=== PATIENT | female | born 1945 | race African-American/Black ===

== ENCOUNTER 2017-07-22 19:43 | Inpatient (IN) | payer OTHER ==
--- NOTE | 2017-07-22 19:58 | PDOC ---
Rapid Medical Evaluation Medical Evaluation: 07/22/17 19:58 I have performed a brief in-person evaluation of this patient. The patient presents with a chief complaint of: Sent by PCP Negrita Desai for blood transfusion, Hg 7.1, fatigue, dizziness, palpitations, denies rectal bleeding/dark stools (on iron pills) hx HTN, asthma, HLD, GERD hx complete hysterectomy, breast cystectomy Pertinent physical exam findings: pale conjunctiva I have ordered the following: labs, T&S, ekg The patient will proceed to the ED for further evaluation. <Yasmin Evans - Last Filed: 07/22/17 20:04> Medical Evaluation: Allergies Allergy/AdvReac Type Severity Reaction Status Date / Time Penicillins Allergy Severe Difficulty Verified 07/22/17 20:02 Breathing Vital Signs Temp Pulse Resp BP Pulse Ox 99 F 92 H 19 162/72 99 07/22/17 20:02 07/23/17 00:26 07/23/17 00:26 07/23/17 00:26 07/23/17 00:26 <Amanda Peterson - Last Filed: 07/23/17 00:31> Time Seen by Provider: 07/22/17 19:57 Discharge Disposition <Yasmin Evans - Last Filed: 07/22/17 20:04> <Amanda Peterson - Last Filed: 07/23/17 00:31> - Diagnosis Symptomatic anemia - Referrals Referrals: Negrita Desai MD [Primary Care Provider] - - Patient Instructions - Post Discharge Activity
[2017-07-22 20:47] LABS: BASOPHIL 1.1 % (0-2.0); MEAN CELL VOLUME 60.4 fl (80-96); MEAN PLT VOLUME 9.1 fl (7.5-11.1); NEUTROPHILS 91.1 % (42.8-82.8); PLATELET COUNT 427 K/MM3 (134-434); RDW 19.7 % (11.6-15.6); WHITE BLOOD COUNT 9.5 K/mm3 (4.0-10.0)
[2017-07-22 20:49] LABS: MCH 18.2 pg (25.7-33.7)
[2017-07-22 21:12] LABS: ALBUMIN 3.7 g/dl (3.4-5.0); ALK PHOS 79 U/L (45-117); ANION GAP 10 (8-16); BILIRUBIN,TOTAL 0.4 mg/dL (0.2-1.0); CALCIUM 9.2 mg/dL (8.5-10.1); CO2 26 mmol/L (21-32); GLUCOSE,RANDOM 232 mg/dL (74-106); SGPT/ALT 14 U/L (12-78); TOT PROT 7.7 g/dl (6.4-8.2)
[2017-07-22 21:17] LABS: SGOT/AST 29 U/L (15-37)
[2017-07-22 22:39] LABS: INR 1.06 (0.82-1.09)
[2017-07-22 22:49] LABS: CPK 58 IU/L (26-192); TROPONIN I < 0.02 ng/ml (0.00-0.05)
--- NOTE | 2017-07-22 23:10 | PDOC ---
History of Present Illness - General History Source: Patient Exam Limitations: No Limitations <Fernanda Calvert - Last Filed: 07/23/17 00:27> <Amanda Peterson - Last Filed: 07/23/17 00:33> - General Chief Complaint: Blood Transfusion Stated Complaint: PCP SENT/BLOOD TRANSFUSION Time Seen by Provider: 07/22/17 19:57 - History of Present Illness Initial Comments: 07/22/17 23:11 The patient is a 71 year old female with significant past medical history of hypertension, hyperlipidemia, asthma, GERD, anemia on Fe supplements, sent to the ED by her doctor for anemia on bloodwork. On evaluation, the patient complains of palpitations, lightheadedness, and generalized weakness. No chest pain or shortness of breath. She denies any hemoptysis or blood per rectum. Patient noted to have a low-grade fever. No nausea, vomiting, or diarrhea. ( Fernanda Calvert) Past History <Fernanda Calvert - Last Filed: 07/23/17 00:27> - Past Medical History Asthma: Yes COPD: No HTN: Yes Hypercholesterolemia: Yes - Suicide/Smoking/Psychosocial Hx Smoking History: Never smoked Have you smoked in the past 12 months: No Information on smoking cessation initiated: No Hx Alcohol Use: No Drug/Substance Use Hx: No Substance Use Type: None <Amanda Peterson - Last Filed: 07/23/17 00:33> - Past Medical History Allergies/Adverse Reactions: Allergies Allergy/AdvReac Type Severity Reaction Status Date / Time Penicillins Allergy Severe Difficulty Verified 07/22/17 20:02 Breathing Home Medications: Ambulatory Orders Chlorthalidone 25 mg PO DAILY 07/22/17 Diltiazem HCl [Diltiazem 24Hr Cd] 180 mg PO DAILY 07/22/17 Enalapril Maleate [Vasotec] 20 mg PO DAILY 07/22/17 Metformin HCl 500 mg PO DAILY 07/22/17 Metoprolol Tartrate 50 mg PO BIDLASIX 07/22/17 Montelukast Na [Singulair -] 10 mg PO HS 07/22/17 Rivaroxaban [Xarelto -] 20 mg PO DAILY 07/22/17 Review of Systems - Review of Systems Able to Perform ROS?: Yes <Fernanda Calvert - Last Filed: 07/23/17 00:27> <Amanda Peterson - Last Filed: 07/23/17 00:33> - Review of Systems Comments:: 07/22/17 23:29 GENERAL/CONSTITUTIONAL: +Generalized weakness. +Low grade fever. HEAD, EYES, EARS, NOSE AND THROAT: No change in vision. No ear pain or discharge. No sore throat. CARDIOVASCULAR: +Palpitations. .+Lightheadedness. No chest pain or shortness of breath. RESPIRATORY: No cough, wheezing, or hemoptysis. GASTROINTESTINAL: No nausea, vomiting, diarrhea or constipation. GENITOURINARY: No dysuria, frequency, or change in urination. MUSCULOSKELETAL: No joint or muscle swelling or pain. No neck or back pain. SKIN: No rash NEUROLOGIC: No headache, loss of consciousness, or change in strength/sensation. ENDOCRINE: No increased thirst. No abnormal weight change. HEMATOLOGIC/LYMPHATIC: No anemia, easy bleeding, or history of blood clots. ALLERGIC/IMMUNOLOGIC: No hives or skin allergy. (Fernanda Calvert) *Physical Exam <Fernanda Calvert - Last Filed: 07/23/17 00:27> <Amanda Peterson - Last Filed: 07/23/17 00:33> - Vital Signs Last Vital Signs Temp Pulse Resp BP Pulse Ox 99 F 92 H 19 162/72 99 07/22/17 20:02 07/23/17 00:26 07/23/17 00:26 07/23/17 00:26 07/23/17 00:26 - Physical Exam Comments: 07/22/17 23:30 GENERAL: Awake, alert, and fully oriented, in no acute distress HEAD: No signs of trauma EYES: PERRLA, EOMI, sclera anicteric. +conjuctival pallor. ENT: Auricles normal inspection, nares patent. Moist mucosa NECK: Normal ROM, supple, no JVD, or masses LUNGS: Breath sounds equal, clear to auscultation bilaterally. No wheezes, and no crackles HEART: Regular rate and rhythm, normal S1 and S2, no murmurs, rubs or gallops ABDOMEN: Soft, nontender, normoactive bowel sounds. No guarding, no rebound. No masses EXTREMITIES: Normal range of motion, no edema. No clubbing or cyanosis. No cords, erythema, or tenderness NEUROLOGICAL: Alert and oriented x 3. Moves all extremities. Face is symmetric. SKIN: Warm, Dry, normal turgor, no rashes or lesions noted. (Fernanda Calvert) Heart Score/ECG Review - Electrocardiogram EKG: Normal - Age Age: >/= 65 - Risk Factors Risk Factors Heart Score: Yes Hx Diabetes Based on the list above the patient has:: 1-2 risk factors - Troponin Troponin: </= normal limit - ECG Intrepretation Rhythm: Regular Rhythm - ECG Impressions Non-specific ST Elevation: No Ischemic Changes: No Bradycardia: No Heart Block: 1st Degree Block(>20mils) <Amanda Peterson - Last Filed: 07/23/17 00:33> ED Treatment Course - LABORATORY CBC & Chemistry Diagram: 07/22/17 20:40 07/22/17 20:40 <Fernanda Calvert - Last Filed: 07/23/17 00:27> - LABORATORY CBC & Chemistry Diagram: 07/22/17 20:40 07/22/17 20:40 <Amanda Peterson - Last Filed: 07/23/17 00:33> - ADDITIONAL ORDERS Additional order review: Laboratory Results 07/22/17 07/22/17 07/22/17 22:14 21:30 21:30 PT with INR 12.00 H INR 1.06 Sodium Potassium Chloride Carbon Dioxide Anion Gap BUN Creatinine Creat Clearance w eGFR Random Glucose Calcium Total Bilirubin AST ALT Alkaline Phosphatase Creatine Kinase Troponin I B-Natriuretic Peptide 148.05 H Total Protein Albumin Stool Occult Blood Negative Blood Type Antibody Screen Crossmatch 07/22/17 07/22/17 07/22/17 21:30 20:40 20:40 PT with INR INR Sodium 137 Potassium 4.1 Chloride 101 Carbon Dioxide 26 Anion Gap 10 BUN 12 Creatinine 1.0 Creat Clearance w eGFR 54.81 Random Glucose 232 H Calcium 9.2 Total Bilirubin 0.4 AST 29 ALT 14 Alkaline Phosphatase 79 Creatine Kinase 58 Troponin I < 0.02 B-Natriuretic Peptide Total Protein 7.7 Albumin 3.7 Stool Occult Blood Blood Type B POSITIVE Antibody Screen Negative Crossmatch See Detail 07/22/17 20:40 RBC 4.41 MCV 60.4 L MCHC 30.0 L RDW 19.7 H MPV 9.1 Neutrophils % 91.1 H Lymphocytes % 7.1 L Monocytes % 0.7 L Eosinophils % 0.0 Basophils % 1.1 - RADIOLOGY Radiology Studies Ordered: Category Date Time Status CHEST X-RAY PORTABLE* [RAD] Stat Radiology 07/23/17 00:01 Taken Medical Decision Making <BalwinderFernanda oleary - Last Filed: 07/23/17 00:27> <Amanda Peterson - Last Filed: 07/23/17 00:33> - Medical Decision Making 07/23/17 00:23 Placed call to patient's PCP, Dr. Negrita Desai. Awaiting callback. 07/23/17 00:[address] Villafuerte, covering physician for Dr. Desai, who agreed to admission. (Fernanda Calvert) 07/23/17 00:28 71-year-old female sent in by Dr. Desai's office for admission for blood transfusion. Patient states she has complaint is fatigue, dizziness and increased shortness of breath with exertion Denies any fever, chills, nausea, vomiting, diarrhea Guaiac-negative. Hemoglobin 8.6, hematocrit sequel to 26, platelets already has adequate Patient's afebrile, hypertensive, in no acute distress. EKG is normal sinus rhythm at 85, left bundle branch block. There are no prior EKGs for comparison. Troponin is negative, cxr no effusions or infiltrates Case discussed with Dr. Villafuerte who is covering for Dr. Desai. Patient can be admitted to 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 (Fernanda Calvert)
[2017-07-22 23:30] LABS: ANISOCYTOSIS 1+; HYPOCHROMIA 3+; MICROCYTOSIS 2+; PLATELET COMMENTS RARE GIANT PLTS; PLATELET ESTIMATE ADEQUATE; POIKILOCYTOSIS OCC; POLYCHROMASIA 1+
[2017-07-23 09:01] LABS: BASOPHIL 0.3 % (0-2.0); MCHC 30.3 g/dl (32.0-36.0); MEAN CELL VOLUME 63.1 fl (80-96); MEAN PLT VOLUME 8.7 fl (7.5-11.1); PLATELET COUNT 407 K/MM3 (134-434); RDW 20.8 % (11.6-15.6)
[2017-07-23 09:14] LABS: MCH 19.1 pg (25.7-33.7)
[2017-07-23 09:35] LABS: ALBUMIN 3.6 g/dl (3.4-5.0); ANION GAP 8 (8-16); CALCIUM 8.8 mg/dL (8.5-10.1); CO2 26 mmol/L (21-32); CREATININE 0.9 mg/dL (0.55-1.02); GLUCOSE,RANDOM 234 mg/dL (74-106); SGOT/AST 11 U/L (15-37); SGPT/ALT 14 U/L (12-78)
[2017-07-23 09:37] LABS: ALK PHOS 73 U/L (45-117); BILIRUBIN,TOTAL 0.7 mg/dL (0.2-1.0); TOT PROT 7.1 g/dl (6.4-8.2)
--- NOTE | 2017-07-23 10:08 | CON.GI ---
Consult - History of Present Illness History of Present Illness: chart reviewed IN ED: The patient is a 71 year old female with significant past medical history of hypertension, hyperlipidemia, asthma, GERD, anemia on Fe supplements , sent to the ED by her doctor for anemia on bloodwork. On evaluation, the patient complains of palpitations, lightheadedness, and generalized weakness. No chest pain or shortness of breath. She denies any hemoptysis or blood per rectum. Patient noted to have a low-grade fever. No nausea, vomiting, or diarrhea. The patient reports no hisotry of black, tarry stools, hematochezia, hematemesis , coffee-ground vomiting, changed in stool caliper, weight loss. No dysphagia, odynophagia, GERD-like symptoms, no dyspepsia, jaundice. Not on chronic NSAIDs, antiplatelet, anticoagulation. No chronic ETOH. Hemoccult negative in ED. Never had EGD/colonsocopy. - Alcohol/Substance Use Hx Alcohol Use: No - Smoking History Smoking history: Never smoked Have you smoked in the past 12 months: No Home Medications - Allergies Allergies/Adverse Reactions: Allergies Allergy/AdvReac Type Severity Reaction Status Date / Time Penicillins Allergy Severe Difficulty Verified 07/22/17 20:02 Breathing - Home Medications Home Medications: Ambulatory Orders Chlorthalidone 25 mg PO DAILY 07/22/17 Diltiazem HCl [Diltiazem 24Hr Cd] 180 mg PO DAILY 07/22/17 Enalapril Maleate [Vasotec] 20 mg PO DAILY 07/22/17 Metformin HCl 500 mg PO DAILY 07/22/17 Metoprolol Tartrate 50 mg PO BIDLASIX 07/22/17 Montelukast Na [Singulair -] 10 mg PO HS 07/22/17 Rivaroxaban [Xarelto -] 20 mg PO DAILY 07/22/17 Family Disease History - Family Disease History Family History: Unremarkable Review of Systems Findings/Remarks: please refer to H&P, HPI - Review of Systems Constitutional: reports: No Symptoms Physical Exam-GI Vital Signs: Vital Signs Temperature 98.7 F 07/23/17 06:07 Pulse Rate 91 H 07/23/17 06:07 Respiratory Rate 13 07/23/17 06:07 Blood Pressure 161/81 07/23/17 06:07 O2 Sat by Pulse Oximetry (%) 99 07/23/17 07:10 Constitutional: Yes: Well Nourished, No Distress, Calm Eyes: Yes: Conjunctiva Clear HENT: Yes: Atraumatic Neck: Yes: Supple Cardiovascular: Yes: Regular Rate and Rhythm Respiratory: Yes: Regular Gastrointestinal Inspection: No: Ascites, Distention ...Auscultate: Yes: Normoactive Bowel Sounds ...Palpate: Yes: Soft. No: Firm/Rigid, Guarding, Mass, Tenderness, Tenderness, Rebound ...Rectal Exam: Yes: Deferred Neurological: Yes: Alert, Oriented Labs: CBC, BMP 07/23/17 08:50 07/23/17 08:50 INR, PTT INR 1.06 (0.82-1.09) 07/22/17 21:30 Laboratory Tests 07/22/17 07/22/17 07/22/17 20:40 20:40 20:40 WBC 9.5 RBC 4.41 Hgb 8.0 L Hct 26.7 L MCV 60.4 L MCH 18.2 L MCHC 30.0 L RDW 19.7 H Plt Count 427 MPV 9.1 Neutrophils % 91.1 H Lymphocytes % 7.1 L Monocytes % 0.7 L Eosinophils % 0.0 Basophils % 1.1 Hypochromia 3+ Platelet Estimate Adequate Platelet Comment Rare giant plts Polychromasia 1+ Poikilocytosis Occ Anisocytosis 1+ Microcytosis 2+ PT with INR INR Sodium 137 Potassium 4.1 Chloride 101 Carbon Dioxide 26 Anion Gap 10 BUN 12 Creatinine 1.0 Creat Clearance w eGFR 54.81 Random Glucose 232 H Calcium 9.2 Total Bilirubin 0.4 AST 29 ALT 14 Alkaline Phosphatase 79 Creatine Kinase Troponin I B-Natriuretic Peptide Total Protein 7.7 Albumin 3.7 Stool Occult Blood Blood Type B POSITIVE Antibody Screen Negative Crossmatch See Detail 07/22/17 07/22/17 07/22/17 21:30 21:30 21:30 WBC RBC Hgb Hct MCV MCH MCHC RDW Plt Count MPV Neutrophils % Lymphocytes % Monocytes % Eosinophils % Basophils % Hypochromia Platelet Estimate Platelet Comment Polychromasia Poikilocytosis Anisocytosis Microcytosis PT with INR 12.00 H INR 1.06 Sodium Potassium Chloride Carbon Dioxide Anion Gap BUN Creatinine Creat Clearance w eGFR Random Glucose Calcium Total Bilirubin AST ALT Alkaline Phosphatase Creatine Kinase 58 Troponin I < 0.02 B-Natriuretic Peptide 148.05 H Total Protein Albumin Stool Occult Blood Blood Type Antibody Screen Crossmatch 07/22/17 07/23/17 07/23/17 22:14 01:04 08:50 WBC 13.0 H D RBC 4.61 Hgb 8.8 L Hct 29.1 L MCV 63.1 L MCH 19.1 L MCHC 30.3 L RDW 20.8 H Plt Count 407 MPV 8.7 Neutrophils % 88.0 H Lymphocytes % 7.7 L Monocytes % 4.0 D Eosinophils % 0.0 Basophils % 0.3 Hypochromia Platelet Estimate Platelet Comment Polychromasia Poikilocytosis Anisocytosis Microcytosis PT with INR INR Sodium Potassium Chloride Carbon Dioxide Anion Gap BUN Creatinine Creat Clearance w eGFR Random Glucose Calcium Total Bilirubin AST ALT Alkaline Phosphatase Creatine Kinase Troponin I B-Natriuretic Peptide Total Protein Albumin Stool Occult Blood Negative Blood Type B POSITIVE Antibody Screen Crossmatch 07/23/17 08:50 WBC RBC Hgb Hct MCV MCH MCHC RDW Plt Count MPV Neutrophils % Lymphocytes % Monocytes % Eosinophils % Basophils % Hypochromia Platelet Estimate Platelet Comment Polychromasia Poikilocytosis Anisocytosis Microcytosis PT with INR INR Sodium 137 Potassium 3.6 Chloride 103 Carbon Dioxide 26 Anion Gap 8 BUN 15 D Creatinine 0.9 Creat Clearance w eGFR > 60 Random Glucose 234 H Calcium 8.8 Total Bilirubin 0.7 D AST 11 L D ALT 14 Alkaline Phosphatase 73 Creatine Kinase Troponin I B-Natriuretic Peptide Total Protein 7.1 Albumin 3.6 Stool Occult Blood Blood Type Antibody Screen Crossmatch Problem List - Problems (1) Microcytic hypochromic anemia Code(s): D50.9 - IRON DEFICIENCY ANEMIA, UNSPECIFIED Assessment/Plan A 71 yof with microcytic, hypochromic, symptomatic anemia. No obvious signs of GI bleed loss, or hemiodynamic instability at this time. As discussed with the patient, plan EGD and colonoscopy to evalaute for GI causes of anemia. Iron profile monitor for signs/symptoms of bleeding.
[2017-07-23] MEDS ORDERED: BISACODYL 5 MG TABLET.DR (FP) PO ONE (10:09)
[2017-07-23 10:34] VITALS: BMI 38.1
[2017-07-23] MEDS: SODIUM CHLORIDE 1,000 ML IV SCH (10:46)
[2017-07-23] MEDS: PANTOPRAZOLE SODIUM 40 MG VIAL IVPUSH SCH ×2 (11:10→22:18)
[2017-07-23] MEDS: ENALAPRIL MALEATE 10 MG TABLET (FP) PO SCH (11:10)
[2017-07-23 12:06] LABS: ANISOCYTOSIS 3+; HYPOCHROMIA 1+; MACROCYTOSIS 0; MICROCYTOSIS 3+; OVALOCYTE 1+; PLATELET ESTIMATE NORMAL; POIKILOCYTOSIS 2+; POLYCHROMASIA 3+; TARGET CELLS 1+
--- NOTE | 2017-07-23 14:03 | EKG ---
Test Reason : Blood Pressure : / mmHG Vent. Rate : 085 BPM Atrial Rate : 085 BPM P-R Int : 146 ms QRS Dur : 140 ms QT Int : 410 ms P-R-T Axes : 066 012 249 degrees QTc Int : 487 ms NORMAL SINUS RHYTHM POSSIBLE LEFT ATRIAL ENLARGEMENT LEFT BUNDLE BRANCH BLOCK ABNORMAL ECG NO PREVIOUS ECGS AVAILABLE Confirmed by KIARA MENDIETA MD ([id number]) on 07/23/2017 2:02:57 PM Referred By: Confirmed By:KIARA MENDIETA MD
--- NOTE | 2017-07-23 14:31 | CON.CARD ---
Consult Consult Specialty:: cardiology Referred by:: Christo Reason for Consultation:: Palpitations and fatigue, lightheadedness - History of Present Illness Chief Complaint: Palpitations, fatigue, lightheadedness History of Present Illness: The patient is a 71-year-old female, borderline diabetic, history of hypertension, hyperlipidemia, paroxysmal atrial fibrillation on Xarelto, who was referred to the emergency room because of severe anemia. The patient reported episodes of palpitations and lightheadedness. Denies chest pains and shortness of breath. She is currently comfortable and symptom free. 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's, CVA, Dementia, Migraine, Multiple Sclerosis, Peripheral Neuropathy, Parkinson's, Seizure, Syncope, TIA, Vertigo, Other Cardio/Vascular: Yes: AFIB Gastrointestinal: No: Ascites, Cancer, Constipation, Crohn's Disease, Diverticulitis, Diverticulosis, Esophageal Varices, Gastritis, GERD, GI Bleed, Hemorrhoids, Hiatal Hernia, Inflamatory Bowel Disease, Irritable Bowel Disease, Pancreatitis, Peptic Ulcer Disease, Ulcerative Colitis, Other Hepatobiliary: No: Cirrhosis, Cholelithiasis, Cholecystitis, Choledocholithiasis , Hepatitis A, Hepatitis B, Hepatitis C, Other Renal/: No: Renal Failure, Renal Inusuff, BPH, Cancer, Hematuria, Hemodialysis , Neurogenic Bladder, Renal Calculi, UTI, Other Infectious Disease: No: AIDS, C-Diff, Herpes Zoster, HIV, MRSA, STD's, Tuberculosis, VREF, Other Psych: No: Addictions, Anxiety, Bipolar, Depression, Panic, Psychosis, Schizophrenia, Other Musculoskeletal: No: Bursitis, Chronic low back pain, Hemiparesis, Hemiplegia, Osteoarthritis, Paraplegia, Other ENT: No: Allergic Rhinitis, Sinusitis, Other Endocrine: No: Ivan's Disease, [place]'s Disease, Diabetes Insipidus, Diabetes Mellitus, Hyperparathyroidism, Hyperthyroidism, Hypothyroidism, Osteopenia, SIADH, Other Dermatology: No: Basal Cell, Cellulitis, Eczema, Melanoma, Psoriasis, Squamous Cell, Other - Alcohol/Substance Use Hx Alcohol Use: No - Smoking History Smoking history: Never smoked Have you smoked in the past 12 months: No Home Medications - Allergies Allergies/Adverse Reactions: Allergies Allergy/AdvReac Type Severity Reaction Status Date / Time Penicillins Allergy Severe Difficulty Verified 07/22/17 20:02 Breathing - Home Medications Home Medications: Ambulatory Orders Chlorthalidone 25 mg PO DAILY 07/22/17 Diltiazem HCl [Diltiazem 24Hr Cd] 180 mg PO DAILY 07/22/17 Enalapril Maleate [Vasotec] 20 mg PO DAILY 07/22/17 Metformin HCl 500 mg PO DAILY 07/22/17 Metoprolol Tartrate 50 mg PO BIDLASIX 07/22/17 Montelukast Na [Singulair -] 10 mg PO HS 07/22/17 Rivaroxaban [Xarelto -] 20 mg PO DAILY 07/22/17 Review of Systems - Review of Systems Constitutional: reports: No Symptoms Eyes: reports: No Symptoms HENT: reports: No Symptoms Neck: reports: No Symptoms Cardiovascular: reports: Palpitations, Shortness of Breath Respiratory: reports: SOB on Exertion Gastrointestinal: reports: No Symptoms Genitourinary: reports: No Symptoms Breasts: reports: No Symptoms Reported Musculoskeletal: reports: No Symptoms Integumentary: reports: No Symptoms Neurological: reports: No Symptoms Endocrine: reports: No Symptoms Hematology/Lymphatic: reports: No Symptoms Psychiatric: reports: No Symptoms Vital Signs: Vital Signs Temperature 98.9 F 07/23/17 10:15 Pulse Rate 77 07/23/17 10:15 Respiratory Rate 18 07/23/17 10:15 Blood Pressure 160/72 07/23/17 10:15 O2 Sat by Pulse Oximetry (%) 100 07/23/17 10:15 Constitutional: Yes: Well Nourished, No Distress, Calm Eyes: Yes: WNL, Conjunctiva Clear, EOM Intact HENT: Yes: WNL, Atraumatic, Normocephalic Neck: Yes: WNL, Supple, Trachea Midline Respiratory: Yes: WNL, Regular, CTA Bilaterally Gastrointestinal: Yes: WNL, Normal Bowel Sounds, Soft Renal/: Yes: WNL Cardiovascular: Yes: WNL, Regular Rate and Rhythm JVD: No Carotid Bruit: No PMI: Non-Displaced Heart Sounds: Yes: S1, S2 Murmur: Yes: Systolic Murmur, Grade 2 Musculoskeletal: Yes: WNL Extremities: Yes: WNL Edema: No Peripheral Pulses WNL: Yes Integumentary: Yes: WNL Neurological: Yes: WNL - Other Data Labs, Other Data: CBC, BMP 07/23/17 08:50 07/23/17 08:50 INR, PTT INR 1.06 (0.82-1.09) 07/22/17 21:30 Troponin, BNP 07/22/17 07/22/17 21:30 21:30 Troponin I < 0.02 B-Natriuretic Peptide 148.05 H Troponin, BNP 07/22/17 07/22/17 21:30 21:30 Troponin I < 0.02 B-Natriuretic Peptide 148.05 H Assessment/Plan 79-year-old female, with borderline diabetes, hypertension, hyperlipidemia, paroxysmal atrial fibrillation on Xarelto, now presenting with symptomatic anemia. The patient reports exertional dyspnea with occasional palpitations. No chest pains. There is no evidence of ischemia nor acute coronary syndrome. No angina. No CHF. The patient is in sinus rhythm with a left bundle-branch block on the ECG. There is no need for further cardiac workup at this point. The patient is medically optimized for a GI workup. Anticoagulation should be resumed, as possible, as per GI. Please do not hesitate to call us PRN There is no need for cardiac monitoring at this point.
[2017-07-23] MEDS: METOPROLOL TARTRATE 50 MG TABLET (FP) PO SCH (14:36)
--- NOTE | 2017-07-23 15:53 | HP ---
Admitting History and Physical - Primary Care Physician PCP: Negrita Desai - Admission Chief Complaint: GI BLEED/ANEMIA/CHEST PAIN History of Present Illness: The patient is a 71 year old female with significant past medical history of hypertension, hyperlipidemia, asthma, GERD, anemia on Fe supplements, sent to the ED by her doctor for anemia on bloodwork. On evaluation, the patient complains of palpitations, lightheadedness, and generalized weakness. No chest pain or shortness of breath. She denies any hemoptysis or blood per rectum. Patient noted to have a low-grade fever. No nausea, vomiting, or diarrhea. The patient reports no hisotry of black, tarry stools, hematochezia, hematemesis , coffee-ground vomiting, changed in stool caliper, weight loss. No dysphagia, odynophagia, GERD-like symptoms, no dyspepsia, jaundice. Not on chronic NSAIDs, antiplatelet, anticoagulation. No chronic ETOH. Hemoccult negative in ED. Never had EGD/colonsocopy. 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: Alzheimer's, CVA, Dementia, Migraine, Multiple Sclerosis, Peripheral Neuropathy, Parkinson's, Seizure, Syncope, TIA, Vertigo, Other Cardiovascular: Yes: AFIB Gastrointestinal: No: Ascites, Cancer, Constipation, Crohn's Disease, Diverticulitis, Diverticulosis, Esophageal Varices, Gastritis, GERD, GI Bleed, Hemorrhoids, Hiatal Hernia, Inflamatory Bowel Disease, Irritable Bowel Disease, Pancreatitis, Peptic Ulcer Disease, Ulcerative Colitis, Other Hepatobiliary: No: Cirrhosis, Cholelithiasis, Cholecystitis, Choledocholithiasis , Hepatitis A, Hepatitis B, Hepatitis C, Other Renal/: No: Renal Failure, Renal Inusuff, BPH, Cancer, Hematuria, Hemodialysis , Neurogenic Bladder, Renal Calculi, UTI, Other Infectious Disease: No: AIDS, C-Diff, Herpes Zoster, HIV, MRSA, STD's, Tuberculosis, VREF, Other Psych: No: Addictions, Anxiety, Bipolar, Depression, Panic, Psychosis, Schizophrenia, Other Musculoskeletal: No: Bursitis, Chronic low back pain, Hemiparesis, Hemiplegia, Osteoarthritis, Paraplegia, Other ENT: No: Allergic Rhinitis, Sinusitis, Other Endocrine: No: [place]'s Disease, [place]'s Disease, Diabetes Insipidus, Diabetes Mellitus, Hyperparathyroidism, Hyperthyroidism, Hypothyroidism, Osteopenia, SIADH, Other Dermatology: No: Basal Cell, Cellulitis, Eczema, Melanoma, Psoriasis, Squamous Cell, Other - Smoking History Smoking history: Never smoked Have you smoked in the past 12 months: No - Alcohol/Substance Use Hx Alcohol Use: No Home Medications - Allergies Allergies/Adverse Reactions: Allergies Allergy/AdvReac Type Severity Reaction Status Date / Time Penicillins Allergy Severe Difficulty Verified 07/22/17 20:02 Breathing - Home Medications Home Medications: Ambulatory Orders Chlorthalidone 25 mg PO DAILY 07/22/17 Diltiazem HCl [Diltiazem 24Hr Cd] 180 mg PO DAILY 07/22/17 Enalapril Maleate [Vasotec] 20 mg PO DAILY 07/22/17 Metformin HCl 500 mg PO DAILY 07/22/17 Metoprolol Tartrate 50 mg PO BIDLASIX 07/22/17 Montelukast Na [Singulair -] 10 mg PO HS 07/22/17 Rivaroxaban [Xarelto -] 20 mg PO DAILY 07/22/17 Review of Systems - Review of Systems Constitutional: reports: Lethargy Eyes: reports: No Symptoms HENT: reports: No Symptoms Neck: reports: No Symptoms Cardiovascular: reports: Chest Pain Respiratory: reports: SOB Gastrointestinal: reports: No Symptoms Genitourinary: reports: No Symptoms Musculoskeletal: reports: No Symptoms Integumentary: reports: No Symptoms Neurological: reports: No Symptoms Endocrine: reports: No Symptoms Hematology/Lymphatic: reports: No Symptoms Psychiatric: reports: No Symptoms Physical Examination Vital Signs: Vital Signs Temperature 98.8 F 07/23/17 14:15 Pulse Rate 76 07/23/17 14:15 Respiratory Rate 18 07/23/17 14:15 Blood Pressure 143/71 07/23/17 14:15 O2 Sat by Pulse Oximetry (%) 98 07/23/17 14:15 Constitutional: Yes: Mild Distress Eyes: Yes: WNL HENT: Yes: WNL Neck: Yes: WNL Cardiovascular: Yes: WNL Respiratory: Yes: WNL Gastrointestinal: Yes: WNL Renal/: Yes: WNL Musculoskeletal: Yes: WNL Extremities: Yes: WNL Edema: No Peripheral Pulses WNL: Yes Integumentary: Yes: WNL Wound/Incision: Yes: Clean/Dry Neurological: Yes: WNL ...Motor Strength: WNL Psychiatric: Yes: WNL Labs: CBC, BMP 07/23/17 08:50 07/23/17 08:50 Problem List - Problems (1) GI bleed Code(s): K92.2 - GASTROINTESTINAL HEMORRHAGE, UNSPECIFIED Qualifiers: Gastritis type: unspecified gastritis (2) Diabetes Code(s): E11.9 - TYPE 2 DIABETES MELLITUS WITHOUT COMPLICATIONS Qualifiers: Diabetes mellitus type: type 2 Diabetes mellitus complication status: with unspecified complications Diabetes mellitus fpc insulin use: without terminal computer operator use Qualified Code(s): E11.8 - Type 2 diabetes mellitus with unspecified complications (3) Hypertension Code(s): I10 - ESSENTIAL (PRIMARY) HYPERTENSION Qualifiers: Hypertension type: essential hypertension Qualified Code(s): I10 - Essential (primary) hypertension (4) Microcytic hypochromic anemia Code(s): D50.9 - IRON DEFICIENCY ANEMIA, UNSPECIFIED (5) Symptomatic anemia Code(s): D64.9 - ANEMIA, UNSPECIFIED Assessment/Plan NPO GI WORKUP IN PROGRESS PPI IV BID CARDIOLOGY EVAL CHECK LABS TRANSFUSE PRBC NEEDED
--- NOTE | 2017-07-23 16:43 | CONSULT ---
Consult Consult Specialty:: Hematolgy - History of Present Illness History of Present Illness: The patient is a 71 year old female with significant past medical history of hypertension, hyperlipidemia, asthma, GERD, anemia on Fe supplements, sent to the ED by PMD for anemia on bloodwork. Hemoccult negative in ED. Never had EGD/ colonsocopy. 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, CVA, Dementia, Migraine, Multiple Sclerosis, Peripheral Neuropathy, Parkinson's, Seizure, Syncope, TIA, Vertigo, Other Cardio/Vascular: Yes: AFIB Gastrointestinal: No: Ascites, Cancer, Constipation, Crohn's Disease, Diverticulitis, Diverticulosis, Esophageal Varices, Gastritis, GERD, GI Bleed, Hemorrhoids, Hiatal Hernia, Inflamatory Bowel Disease, Irritable Bowel Disease, Pancreatitis, Peptic Ulcer Disease, Ulcerative Colitis, Other Hepatobiliary: No: Cirrhosis, Cholelithiasis, Cholecystitis, Choledocholithiasis , Hepatitis A, Hepatitis B, Hepatitis C, Other Renal/: No: Renal Failure, Renal Inusuff, BPH, Cancer, Hematuria, Hemodialysis , Neurogenic Bladder, Renal Calculi, UTI, Other Infectious Disease: No: AIDS, C-Diff, Herpes Zoster, HIV, MRSA, STD's, Tuberculosis, VREF, Other Psych: No: Addictions, Anxiety, Bipolar, Depression, Panic, Psychosis, Schizophrenia, Other Musculoskeletal: No: Bursitis, Chronic low back pain, Hemiparesis, Hemiplegia, Osteoarthritis, Paraplegia, Other ENT: No: Allergic Rhinitis, Sinusitis, Other Endocrine: No: [place]'s Disease, [place]'s Disease, Diabetes Insipidus, Diabetes Mellitus, Hyperparathyroidism, Hyperthyroidism, Hypothyroidism, Osteopenia, SIADH, Other Dermatology: No: Basal Cell, Cellulitis, Eczema, Melanoma, Psoriasis, Squamous Cell, Other - Alcohol/Substance Use Hx Alcohol Use: No - Smoking History Smoking history: Never smoked Have you smoked in the past 12 months: No Home Medications - Allergies Allergies/Adverse Reactions: Allergies Allergy/AdvReac Type Severity Reaction Status Date / Time Penicillins Allergy Severe Difficulty Verified 07/22/17 20:02 Breathing - Home Medications Home Medications: Ambulatory Orders Chlorthalidone 25 mg PO DAILY 07/22/17 Diltiazem HCl [Diltiazem 24Hr Cd] 180 mg PO DAILY 07/22/17 Enalapril Maleate [Vasotec] 20 mg PO DAILY 07/22/17 Metformin HCl 500 mg PO DAILY 07/22/17 Metoprolol Tartrate 50 mg PO BIDLASIX 07/22/17 Montelukast Na [Singulair -] 10 mg PO HS 07/22/17 Rivaroxaban [Xarelto -] 20 mg PO DAILY 07/22/17 Review of Systems - Review of Systems Constitutional: denies: Diaphoresis, Fever, Lethargy, Loss of Appetite, Unintentional Wgt. Loss, Weakness HENT: denies: Difficult Swallowing, Ear Discharge Neck: denies: Decreased ROM, Lumps Cardiovascular: reports: Shortness of Breath. denies: Chest Pain Respiratory: reports: Exercise Intolerance, SOB on Exertion. denies: Cough Neurological: reports: No Symptoms Hematology/Lymphatic: reports: No Symptoms Physical Exam Vital Signs: Vital Signs Temperature 98.7 F 07/23/17 14:30 Pulse Rate 78 07/23/17 14:30 Respiratory Rate 18 07/23/17 14:30 Blood Pressure 144/72 07/23/17 14:30 O2 Sat by Pulse Oximetry (%) 99 07/23/17 14:30 Constitutional: Yes: Well Nourished, No Distress, Calm Eyes: Yes: Conjunctiva Clear HENT: Yes: Atraumatic, Normocephalic Neck: Yes: Supple Cardiovascular: Yes: Regular Rate and Rhythm Respiratory: Yes: Regular, CTA Bilaterally Gastrointestinal: Yes: Normal Bowel Sounds, Soft Musculoskeletal: Yes: WNL Extremities: Yes: WNL Edema: No Labs: CBC, BMP 07/23/17 08:50 07/23/17 08:50 Problem List - Problems (1) Diabetes Code(s): E11.9 - TYPE 2 DIABETES MELLITUS WITHOUT COMPLICATIONS Qualifiers: Diabetes mellitus type: type 2 Diabetes mellitus complication status: with unspecified complications Diabetes mellitus vermin exterminator insulin use: without mcfp use Qualified Code(s): E11.8 - Type 2 diabetes mellitus with unspecified complications (2) Microcytic hypochromic anemia Code(s): D50.9 - IRON DEFICIENCY ANEMIA, UNSPECIFIED (3) Symptomatic anemia Code(s): D64.9 - ANEMIA, UNSPECIFIED (4) Paroxysmal A-fib Code(s): I48.0 - PAROXYSMAL ATRIAL FIBRILLATION Assessment/Plan is a 71 year old pt with anemia. on Xarelto for pAfib Hypochromic microcytic anemia , reviewing the RDW/MCV, seems like chronic GI consulted noted will follow op on EGD/Colonoscopy results for iron studies r/o any underlying hemoglobinopathy will follow. depending on iron studies may benefit from IV iron d/w pt.
[2017-07-23 17:44] LABS: LDH 255 U/L (84-246)
[2017-07-23 17:45] LABS: FERRITIN 7.708 ng/ml (6.9-282.5)
[2017-07-23] MEDS ORDERED: PEG 3350/NA SULF BICARB CL/KCL 4000 ML SOLN.RECON PO ONE (18:00)
[2017-07-23] MEDS: MONTELUKAST NA 10 MG TABLET PO SCH (22:18)
[2017-07-24 01:27] LABS: MCHC 30.8 g/dl (32.0-36.0); MEAN PLT VOLUME 9.2 fl (7.5-11.1); NEUTROPHILS 86.6 % (42.8-82.8); PLATELET COUNT 345 K/MM3 (134-434); RDW 23.6 % (11.6-15.6); WHITE BLOOD COUNT 14.9 K/mm3 (4.0-10.0)
[2017-07-24 01:31] LABS: MCH 19.7 pg (25.7-33.7)
[2017-07-24 02:36] LABS: FERRITIN 10.91 ng/ml (6.9-282.5)
[2017-07-24] MEDS: METOPROLOL TARTRATE 50 MG TABLET (FP) PO SCH ×2 (06:39→14:18)
[2017-07-24] MEDS: SODIUM CHLORIDE 1,000 ML IV SCH ×2 (08:00→21:24)
[2017-07-24] MEDS: PANTOPRAZOLE SODIUM 40 MG VIAL IVPUSH SCH (10:00)
[2017-07-24] MEDS ORDERED: PROPOFOL 20 ML ONE ×4 (10:27)
--- NOTE | 2017-07-24 11:19 | PROC ---
Endoscopy Procedure Endoscopy procedure completed. Please see scanned procedure report. Normal colonoscopy, moderate internal hemorrhoids. 2 x 3 cm white-based, without stigmata of recent, or impending bleeding ulcer was found in the antrum. Multiple biopsies taken. Mild esohagtitis was found in distal esophagus. PPI po bid Carafate 1 mg po qid x 1 week No NSAIDs Regular diet Follow pathology report in office in 1-2 weeks Repeat EGD in 3 months for ulcer surveillance Screening colonoscopy in 5 years (10-15% obscured) Strongly consider Pulmonary/Sleep medicine evacuation for BENJAMIN
--- NOTE | 2017-07-24 11:23 | PN ---
Progress Note, Physician Chief Complaint: s/p endoscopy awake but drowsy - Current Medication List Current Medications: Active Medications Diltiazem HCl (Cardizem Cd -) 180 mg PO DAILY [facility] Last Admin: 07/23/17 11:10 Dose: 180 mg Enalapril Maleate (Vasotec -) 20 mg PO DAILY [facility] Last Admin: 07/23/17 11:10 Dose: 20 mg Sodium Chloride (Normal Saline -) 1,000 mls @ 83 mls/hr IV ASDIR [facility] Last Admin: 07/23/17 10:46 Dose: 83 mls/hr Metoprolol Tartrate (Lopressor -) 50 mg PO BID@0600,1400 [facility] Last Admin: 07/24/17 06:39 Dose: 50 mg Montelukast Sodium (Singulair -) 10 mg PO HS [facility] Last Admin: 07/23/17 22:18 Dose: 10 mg Pantoprazole Sodium (Protonix -) 40 mg PO BID [facility] Sucralfate (Carafate Oral Suspension -) 1 gm PO QID [facility] - Objective Vital Signs: Vital Signs Temperature 98.3 F 07/24/17 06:00 Pulse Rate 60 07/24/17 09:00 Respiratory Rate 18 07/24/17 09:00 Blood Pressure 154/66 07/24/17 09:00 O2 Sat by Pulse Oximetry (%) 98 07/23/17 22:39 Constitutional: Yes: No Distress Eyes: Yes: WNL HENT: Yes: WNL Neck: Yes: WNL Cardiovascular: Yes: WNL Respiratory: Yes: WNL Gastrointestinal: Yes: WNL Genitourinary: Yes: WNL Musculoskeletal: Yes: WNL Extremities: Yes: WNL Edema: No Peripheral Pulses WNL: Yes Integumentary: Yes: WNL Wound/Incision: Yes: Clean/Dry Neurological: Yes: WNL ...Motor Strength: WNL Psychiatric: Yes: WNL Labs: CBC, BMP 07/24/17 00:00 07/23/17 08:50 INR, PTT INR 1.06 (0.82-1.09) 07/22/17 21:30 Problem List - Problems (1) GI bleed Code(s): K92.2 - GASTROINTESTINAL HEMORRHAGE, UNSPECIFIED Qualifiers: Gastritis type: unspecified gastritis (2) Diabetes Code(s): E11.9 - TYPE 2 DIABETES MELLITUS WITHOUT COMPLICATIONS Qualifiers: Diabetes mellitus type: type 2 Diabetes mellitus complication status: with unspecified complications Diabetes mellitus correction insulin use: without correction use Qualified Code(s): E11.8 - Type 2 diabetes mellitus with unspecified complications (3) Hypertension Code(s): I10 - ESSENTIAL (PRIMARY) HYPERTENSION Qualifiers: Hypertension type: essential hypertension Qualified Code(s): I10 - Essential (primary) hypertension (4) Microcytic hypochromic anemia Code(s): D50.9 - IRON DEFICIENCY ANEMIA, UNSPECIFIED (5) Symptomatic anemia Code(s): D64.9 - ANEMIA, UNSPECIFIED Assessment/Plan await EGD results cbc in am diet per gi oob to chair
--- NOTE | 2017-07-24 11:31 | EKG ---
Test Reason : Blood Pressure : / mmHG Vent. Rate : 069 BPM Atrial Rate : 069 BPM P-R Int : 150 ms QRS Dur : 138 ms QT Int : 440 ms P-R-T Axes : 069 -04 165 degrees QTc Int : 471 ms NORMAL SINUS RHYTHM LEFT BUNDLE BRANCH BLOCK ABNORMAL ECG WHEN COMPARED WITH ECG OF 23-JUL-2017 09:52, T WAVE INVERSION NO LONGER EVIDENT IN LATERAL LEADS Confirmed by ANDREW MORIN, MADISON ([id number]) on 07/24/2017 11:31:15 AM Referred By: Confirmed By:MADISON MORLAES MD
[2017-07-24] MEDS: PANTOPRAZOLE 40 MG TABLET (FP) PO SCH ×2 (14:22→21:24)
[2017-07-24] MEDS: SUCRALFATE 1 GM/10 ML UNIT DOSE CUPS PO SCH ×3 (14:23→21:24)
[2017-07-24] MEDS: ENALAPRIL MALEATE 10 MG TABLET (FP) PO SCH (14:23)
--- NOTE | 2017-07-24 14:32 | PN ---
Progress Note (short form) - Note Progress Note: Pt seen and examined. S/p GI w/u. feels well. O/E: Constitutional: Yes: Well Nourished, No Distress, Calm Eyes: Yes: Conjunctiva Clear HENT: Yes: Atraumatic, Normocephalic Neck: Yes: Supple Cardiovascular: Yes: Regular Rate and Rhythm Respiratory: Yes: Regular, CTA Bilaterally Gastrointestinal: Yes: Normal Bowel Sounds, Soft Musculoskeletal: Yes: WNL Extremities: Yes: WNL Edema: No Last Vital Signs Temp Pulse Resp BP Pulse Ox 98.9 F 72 18 152/58 99 07/24/17 11:57 07/24/17 14:15 07/24/17 14:15 07/24/17 14:15 07/24/17 11:44 CBC, BMP 07/24/17 00:00 07/23/17 08:50 Current Medications Generic Name Dose Route Start Last Admin Trade Name Freq PRN Reason Stop Dose Admin Diltiazem HCl 180 mg 07/23/17 10:00 07/23/17 11:10 Cardizem Cd - PO 180 mg DAILY [facility] Administration Enalapril Maleate 20 mg 07/23/17 10:00 07/23/17 11:10 Vasotec - PO 20 mg DAILY [facility] Administration Sodium Chloride 1,000 mls @ 83 mls/hr 07/23/17 08:30 07/23/17 10:46 Normal Saline - IV 83 mls/hr ASDIR [facility] Administration Iron Sucrose 100 mg/ Sodium 100 mls @ 200 mls/hr 07/24/17 14:26 Chloride IVPB 07/24/17 14:55 ONCE ONE Metoprolol Tartrate 50 mg 07/23/17 14:00 07/24/17 14:18 Lopressor - PO Not Given BID@0600,1400 ELO Montelukast Sodium 10 mg 07/23/17 22:00 07/23/17 22:18 Singulair - PO 10 mg HS [facility]LO Administration Pantoprazole Sodium 40 mg 07/24/17 11:30 Protonix - PO BID [facility] Sucralfate 1 gm 07/24/17 14:00 Carafate Oral Suspension - PO QID [facility] Severe chronic iron deficiency, ferritin of 10 For GI w/u , colonoscopy wnl EGD , ulcer+, need to followup biopsies cbc in the am iv iron today for OP f/u Problem List - Problems (1) Diabetes Code(s): E11.9 - TYPE 2 DIABETES MELLITUS WITHOUT COMPLICATIONS Qualifiers: Diabetes mellitus type: type 2 Diabetes mellitus complication status: with unspecified complications Diabetes mellitus fci insulin use: without fci use Qualified Code(s): E11.8 - Type 2 diabetes mellitus with unspecified complications (2) Microcytic hypochromic anemia Code(s): D50.9 - IRON DEFICIENCY ANEMIA, UNSPECIFIED (3) Symptomatic anemia Code(s): D64.9 - ANEMIA, UNSPECIFIED (4) Paroxysmal A-fib Code(s): I48.0 - PAROXYSMAL ATRIAL FIBRILLATION
[2017-07-24] MEDS ORDERED: IRON SUCROSE INJECTION 100 MG in SODIUM CHLORIDE 95 ML IVPB ONE (15:00)
[2017-07-24] MEDS ORDERED: ACETAMINOPHEN 325 MG TABLET (FP) ONE (17:05)
[2017-07-24] MEDS: ACETAMINOPHEN 325 MG TABLET (FP) PO PRN (17:22)
[2017-07-24] MEDS: MONTELUKAST NA 10 MG TABLET PO SCH (21:24)
[2017-07-25] MEDS: METOPROLOL TARTRATE 50 MG TABLET (FP) PO SCH (05:31)
[2017-07-25] MEDS: ACETAMINOPHEN 325 MG TABLET (FP) PO PRN (07:02)
[2017-07-25 07:44] LABS: MCHC 30.7 g/dl (32.0-36.0); MEAN CELL VOLUME 64.8 fl (80-96); PLATELET COUNT 336 K/MM3 (134-434); RDW 24.1 % (11.6-15.6); WHITE BLOOD COUNT 14.2 K/mm3 (4.0-10.0)
[2017-07-25 07:59] LABS: MCH 19.9 pg (25.7-33.7)
[2017-07-25 08:06] LABS: SERUM IRON 95 ug/dL (27-139); TOTAL IRON BINDING CAPACITY 357 ug/dL (250-450); UIBC 262 ug/dL (118-369)
[2017-07-25 08:13] LABS: ALBUMIN 3.2 g/dl (3.4-5.0); ANION GAP 9 (8-16); CALCIUM 8.5 mg/dL (8.5-10.1); CO2 27 mmol/L (21-32); GLUCOSE,RANDOM 120 mg/dL (74-106)
[2017-07-25 08:15] LABS: ALK PHOS 62 U/L (45-117); BILIRUBIN,TOTAL 0.6 mg/dL (0.2-1.0); CREATININE 0.8 mg/dL (0.55-1.02); SGOT/AST 10 U/L (15-37); SGPT/ALT 15 U/L (12-78); TOT PROT 6.4 g/dl (6.4-8.2)
[2017-07-25] MEDS ORDERED: POTASSIUM CHLORIDE TABS 20 MEQ TABLET.ER (FP) PO ONE ×2 (09:15→10:00)
[2017-07-25] MEDS ORDERED: IRON SUCROSE INJECTION 100 MG in SODIUM CHLORIDE 95 ML IVPB ONE (10:00)
--- NOTE | 2017-07-25 10:25 | PN ---
Progress Note (short form) - Note Progress Note: ID consult dictated asked to see for leukocytosis 71 year old female admitted with symptomatic anemia- dizziness had endoscopy-egd/colonoscopy - gastric ulcer suspect reactive leukocytosis secondary to anemia no signs of infection by history or physical agree with cultures would observe off antibiotics Problem List - Problems (1) Leukocytosis Code(s): D72.829 - ELEVATED WHITE BLOOD CELL COUNT, UNSPECIFIED (2) Microcytic hypochromic anemia Code(s): D50.9 - IRON DEFICIENCY ANEMIA, UNSPECIFIED (3) Gastric ulcer Code(s): K25.9 - GASTRIC ULCER, UNSP ACUTE OR CHRONIC, W/O HEMOR OR PERF
[2017-07-25 10:34] VITALS: BP 165/75; PULSE 62; TEMP 98.3
[2017-07-25] MEDS: SUCRALFATE 1 GM/10 ML UNIT DOSE CUPS PO SCH (10:37)
[2017-07-25] MEDS: ENALAPRIL MALEATE 10 MG TABLET (FP) PO SCH (10:37)
[2017-07-25] MEDS: PANTOPRAZOLE 40 MG TABLET (FP) PO SCH (10:37)
--- NOTE | 2017-07-25 11:10 | PN ---
Progress Note, Physician History of Present Illness: chart reviewed No events, comfortable. Asymptomatic. - Current Medication List Current Medications: Active Medications Acetaminophen (Tylenol -) 650 mg PO Q8H PRN PRN Reason: [facility] Last Admin: 07/25/17 07:02 Dose: 650 mg Diltiazem HCl (Cardizem Cd -) 180 mg PO DAILY [facility] Last Admin: 07/25/17 10:37 Dose: 180 mg Enalapril Maleate (Vasotec -) 20 mg PO DAILY [facility] Last Admin: 07/25/17 10:37 Dose: 20 mg Sodium Chloride (Normal Saline -) 1,000 mls @ 83 mls/hr IV ASDIR [facility] Last Admin: 07/24/17 21:24 Dose: 83 mls/hr Metoprolol Tartrate (Lopressor -) 50 mg PO BID@0600,1400 [facility] Last Admin: 07/25/17 05:31 Dose: 50 mg Montelukast Sodium (Singulair -) 10 mg PO HS [facility] Last Admin: 07/24/17 21:24 Dose: 10 mg Pantoprazole Sodium (Protonix -) 40 mg PO BID [facility] Last Admin: 07/25/17 10:37 Dose: 40 mg Sucralfate (Carafate Oral Suspension -) 1 gm PO QID [facility] Last Admin: 07/25/17 10:37 Dose: 1 gm - Objective Vital Signs: Vital Signs Temperature 98.3 F 07/25/17 10:00 Pulse Rate 62 07/25/17 10:00 Respiratory Rate 20 07/25/17 10:00 Blood Pressure 165/75 07/25/17 10:00 O2 Sat by Pulse Oximetry (%) 98 07/24/17 21:00 Constitutional: Yes: Well Nourished, No Distress, Calm Eyes: Yes: Conjunctiva Clear HENT: Yes: Atraumatic Neck: Yes: Supple Cardiovascular: Yes: Regular Rate and Rhythm Respiratory: Yes: Regular Gastrointestinal: Yes: Normal Bowel Sounds, Soft. No: Melena, Rectal Bleeding, Tenderness, Tenderness, Epigastrium, Vomiting Labs: CBC, BMP 07/25/17 07:15 07/25/17 07:15 INR, PTT INR 1.06 (0.82-1.09) 07/22/17 21:30 Laboratory Results - last 24 hr 07/24/17 07/24/17 07/24/17 00:00 17:02 21:36 WBC RBC Hgb Hct MCV MCH MCHC RDW Plt Count MPV Sodium Potassium Chloride Carbon Dioxide Anion Gap BUN Creatinine Creat Clearance w eGFR POC Glucometer 151 114 Random Glucose Calcium Iron 95 TIBC 357 Iron Saturation 27 Total Bilirubin AST ALT Alkaline Phosphatase Total Protein Albumin 07/25/17 07/25/17 07/25/17 05:27 07:15 07:15 WBC 14.2 H RBC 4.68 Hgb 9.3 L Hct 30.3 L MCV 64.8 L MCH 19.9 L MCHC 30.7 L RDW 24.1 H Plt Count 336 MPV 9.0 Sodium 143 Potassium 3.3 L Chloride 107 Carbon Dioxide 27 Anion Gap 9 BUN 14 Creatinine 0.8 Creat Clearance w eGFR > 60 POC Glucometer 113 Random Glucose 120 H D Calcium 8.5 Iron TIBC Iron Saturation Total Bilirubin 0.6 AST 10 L ALT 15 Alkaline Phosphatase 62 Total Protein 6.4 Albumin 3.2 L Problem List - Problems (1) Microcytic hypochromic anemia Code(s): D50.9 - IRON DEFICIENCY ANEMIA, UNSPECIFIED (2) Gastric ulcer Code(s): K25.9 - GASTRIC ULCER, UNSP ACUTE OR CHRONIC, W/O HEMOR OR PERF (3) GI bleed Code(s): K92.2 - GASTROINTESTINAL HEMORRHAGE, UNSPECIFIED Qualifiers: Gastritis type: unspecified gastritis (4) Gastric ulcer Code(s): K25.9 - GASTRIC ULCER, UNSP ACUTE OR CHRONIC, W/O HEMOR OR PERF (5) Symptomatic anemia Code(s): D64.9 - ANEMIA, UNSPECIFIED Assessment/Plan PPI po bid Carafate qid x 7 days Iron No NSAIDs EGD in 3 months GI office in 1-2 weeks, follow biopsies Sleep study, or as per PCP
[2017-07-25] MEDS: SODIUM CHLORIDE 1,000 ML IV SCH (11:29)
--- NOTE | 2017-07-25 11:56 | DS ---
Physical Examination Vital Signs: Vital Signs Temperature 98.3 F 07/25/17 10:00 Pulse Rate 62 07/25/17 10:00 Respiratory Rate 20 07/25/17 10:00 Blood Pressure 165/75 07/25/17 10:00 O2 Sat by Pulse Oximetry (%) 100 07/25/17 09:00 Findings/Remarks: awake alert nad, ready to go home Constitutional: Yes: No Distress Eyes: Yes: WNL HENT: Yes: WNL Neck: Yes: WNL Cardiovascular: Yes: Pulse Irregular Respiratory: Yes: WNL Gastrointestinal: Yes: WNL Renal/: Yes: WNL Musculoskeletal: Yes: WNL Extremities: Yes: WNL Edema: No Peripheral Pulses WNL: Yes Integumentary: Yes: WNL Wound/Incision: Yes: Clean/Dry Neurological: Yes: WNL ...Motor Strength: WNL Psychiatric: Yes: WNL Labs: CBC, BMP 07/25/17 07:15 07/25/17 07:15 Discharge Summary Reason For Visit: DIABETES MELLITUS,SECONDARY ANEMIA, HYPERTENSION Current Active Problems Diabetes (Acute) GI bleed (Acute) Gastric ulcer (Acute) Gastric ulcer (Acute) Hypertension (Acute) Leukocytosis (Acute) Microcytic hypochromic anemia (Acute) Paroxysmal A-fib (Acute) Symptomatic anemia (Acute) Procedures: Principal: egd Hospital Course: admitted for severe anemia gi bleed, now on ppi and sucralafate, restart xarelto in 3 days. - Instructions Diet, Activity, Other Instructions: see dr villanueva/april 1 week for blood draw ada/low sodium diet Referrals: Negrita Desai MD [Primary Care Provider] - Disposition: HOME - Home Medications Comprehensive Discharge Medication List: Ambulatory Orders Chlorthalidone 25 mg PO DAILY 07/22/17 Enalapril Maleate [Vasotec] 20 mg PO DAILY 07/22/17 Metformin HCl 500 mg PO DAILY 07/22/17 Metoprolol Tartrate 50 mg PO BIDLASIX 07/22/17 Montelukast Na [Singulair -] 10 mg PO HS 07/22/17 Rivaroxaban [Xarelto -] 20 mg PO DAILY 07/22/17 Diltiazem HCl [Diltiazem 24Hr Cd] 180 mg PO DAILY #30 cap 07/25/17 Pantoprazole Sodium [Protonix -] 40 mg PO BID #60 tablet.ec 07/25/17 Sucralfate Oral Suspension [Carafate Oral Suspension -] 1 gm PO QID #30 ml 07/25
[2017-07-26 19:31] LABS: ALBUMIN 3.5; ALPHA-1-GLOBULIN 0.3; BETA GLOBULIN 1.4; GLOBULIN, TOTAL 3.6; M-SPIKE NOT OBSERVED; TOTAL PROTEIN 7.1
[2017-07-28 08:07] LABS: Hgb A2 1.9 % (0.7-3.1)
--- NOTE | 2017-07-28 10:17 | EKG ---
Test Reason : Blood Pressure : / mmHG Vent. Rate : 076 BPM Atrial Rate : 076 BPM P-R Int : 162 ms QRS Dur : 142 ms QT Int : 432 ms P-R-T Axes : 066 -08 253 degrees QTc Int : 486 ms NORMAL SINUS RHYTHM POSSIBLE LEFT ATRIAL ENLARGEMENT LEFT BUNDLE BRANCH BLOCK ABNORMAL ECG WHEN COMPARED WITH ECG OF 22-JUL-2017 23:00, NO SIGNIFICANT CHANGE WAS FOUND Confirmed by GAYATRI MORIN, KIARA ([id number]) on 07/23/2017 11:37:32 AM Referred By: Confirmed By:KIARA MENDIETA MD
--- NOTE | 2017-07-28 14:14 | PATH ---
Surgical Pathology Report Patient Name: DARON ACOSTA [facility]. Rec. #: [id number] /Age/Gender: 1945 (Age: 71) / F Account: [id number] Location: [address] [place] [address] Taken: 07/24/2017 Received: 07/24/2017 Reported: 07/28/2017 Physicians: Roger David M.D. Specimen(s) Received A: BX DUODENUM B: ANTRUM ULCER C: BX ANTRUM BODY D: BX DISTAL ESOPHAGUS Clinical History Preoperative diagnosis: Anemia Postoperative diagnosis: Gastric ulcer with esophagitis, internal hemorrhoids Final Diagnosis A. DUODENUM, SECOND PORTION, BIOPSY: DUODENAL MUCOSA WITH NO PATHOLOGIC CHANGES. NO HISTOLOGIC EVIDENCE OF GLUTEN SENSITIVE ENTEROPATHY (CELIAC SPRUE) IDENTIFIED. B. STOMACH, ANTRAL ULCER, BIOPSY: GASTRIC ANTRAL MUCOSA AND MODERATE CHRONIC ACTIVE GASTRITIS AND AREAS OF ULCERATION. FEW ORGANISMS MORPHOLOGICALLY CONSISTENT WITH H. PYLORI IDENTIFIED WITH DIFF QUIK STAIN. C. STOMACH ANTRUM AND BODY, BIOPSY: MODERATE CHRONIC ACTIVE GASTRITIS. FEW ORGANISMS MORPHOLOGICALLY CONSISTENT WITH H. PYLORI IDENTIFIED WITH DIFF QUIK STAIN. D. DISTAL ESOPHAGUS, BIOPSY: SQUAMOUS MUCOSA WITH ACUTE INFLAMMATION AND SUPERFICIAL ULCERATION. FUNGAL STAIN (PAS) IS POSITIVE FOR FUNGAL AND YEAST FORMS. Electronically Signed Jorge Donohue M.D. Gross Description A. Received in formalin, labeled "biopsy duodenum second portion" is a joyner, irregular portion of soft tissue measuring 0.6 cm. in greatest dimension. The specimen is submitted in toto in one cassette. B. Received in formalin, labeled "biopsy antral ulcer" are 2 joyner, irregular portions of soft tissue averaging 0.3 cm. in greatest dimension. The specimens are submitted in toto in one cassette. C. Received in formalin, labeled "biopsy antrum and body" are 4 joyner, irregular portions of soft tissue ranging from 0.1-0.4 cm. in greatest dimension. The specimens are submitted in toto in one cassette. D. Received in formalin, labeled "biopsy distal esophagus" are 2 joyner, irregular portions of soft tissue averaging 0.3 cm. in greatest dimension. The specimens are submitted in toto in one cassette. 07/25/201707/25/2017
== END 2017-07-25 13:40 | disposition home or self-care (01) | DRG 812 ==
LOC: JER 19:43 → JERBED 07-23 00:34 → J5S 07-23 18:40
PROVIDERS: ADMIT Family Medicine; ATTEND Family Medicine
PROC: 30233H1 Transfusion of Nonautologous Whole Blood into Peripheral Vein, Percutaneous Approach (ICD-10-PCS; 2017-07-23)
PROC: 0DD68ZX Extraction of Stomach, Via Natural or Artificial Opening Endoscopic, Diagnostic (ICD-10-PCS; 2017-07-24)
PROC: 0DD58ZX Extraction of Esophagus, Via Natural or Artificial Opening Endoscopic, Diagnostic (ICD-10-PCS; 2017-07-24)
PROC: 0DD98ZX Extraction of Duodenum, Via Natural or Artificial Opening Endoscopic, Diagnostic (ICD-10-PCS; principal; 2017-07-24 10:15)
DX: D62 Acute posthemorrhagic anemia (principal); K25.9 Gastric ulcer, unspecified as acute or chronic, without hemorrhage or perforation; K21.0 Gastro-esophageal reflux disease with esophagitis; K29.70 Gastritis, unspecified, without bleeding; E11.9 Type 2 diabetes mellitus without complications; I10 Essential (primary) hypertension; J45.909 Unspecified asthma, uncomplicated; K21.9 Gastro-esophageal reflux disease without esophagitis; Z90.710 Acquired absence of both cervix and uterus; E78.5 Hyperlipidemia, unspecified; I44.0 Atrioventricular block, first degree; I48.0 Paroxysmal atrial fibrillation; Z79.01 Long term (current) use of anticoagulants
CPT/HCPCS: 36415; 36430; 36511; 71010-TC; 80053; 82272; 82550; 82607; 82728; 82746; 82784; 83021; 83540; 83550; 83615; 83880; 84155; 84165; 84484; 85025; 85027; 85044; 85610; 85660; 86334; 86850; 86900; 86901; 86922; 87040; 87086; 88305-TC; 93005; 93010; 99285-25; J1756; P9038; P9058

== ENCOUNTER 2019-10-11 13:37 | Emergency (ER) | payer OTHER ==
[2019-10-11 14:14] VITALS: TEMP 97.8; BMI 39.4
--- NOTE | 2019-10-11 14:16 | PDOC ---
Rapid Medical Evaluation Chief Complaint: Pain Time Seen by Provider: 10/11/19 14:13 Medical Evaluation: Allergies Allergy/AdvReac Type Severity Reaction Status Date / Time Penicillins Allergy Severe Difficulty Verified 12/07/18 09:33 Breathing Vital Signs Temp Pulse Resp BP Pulse Ox 97.8 F 97 H 17 185/97 H 98 10/11/19 14:11 10/11/19 14:11 10/11/19 14:11 10/11/19 14:11 10/11/19 14:11 10/11/19 14:15 This patient had a rapid evaluation in triage cc: lower back pain HPI: Patient reports pain to lower back radiating down right leg. Denies numbness or tingling States no injury or fall PE: appears well unlabored breathing mskL: no mid spinal tenderness, unable to bear weight to right leg Orders: none This patient will proceed to main ed for further evaluation Discharge Disposition - Diagnosis Right leg pain - Referrals Referrals: Negrita Desai MD [Primary Care Provider] - - Patient Instructions - Post Discharge Activity
--- NOTE | 2019-10-11 15:59 | PDOC ---
Attending Attestation - Resident Resident Name: Sergio Bojorquez - HPI HPI: 10/11/19 18:20 pt presents to the ED complaining of acute exacerbation of her chronic lower back pain. History of chronic arthritis, for which she takes percoset. States that pain is now radiating down her leg, which is making it hard for her to walk. Took percoset today without relief. - Physicial Exam PE: 10/11/19 18:35 Agree with resident exam. PAtient is alert and in no acute distress. Full ROm of hip, no tenderness or deformity. No point tenderness of over spine. - Medical Decision Making 10/11/19 18:36 Pt presents to the ED complaining of acute exacerbation of her chronic back pain. Xray Lumbar spine performed to rule out fracture or lytic lesion and is negative. Will control pain control and likely discharge home with instructions to follow up with PCP and return to the ED for worsening symptoms
[2019-10-11] MEDS ORDERED: LIDOCAINE 5% TOPICAL PATCH TP ONE (16:16)
[2019-10-11] MEDS ORDERED: ACETAMINOPHEN 325 MG TABLET (FP) PO ONE (16:16)
--- NOTE | 2019-10-11 16:16 | PDOC ---
History of Present Illness - General Chief Complaint: Pain Stated Complaint: RT SIDE JOINT PAIN Time Seen by Provider: 10/11/19 14:13 - History of Present Illness Initial Comments: HPI: 74 y/o female presenting to [facility] ER complaining of atraumatic right hip pain with episodic radiation to posterior right thigh. Started spontaneously four days ago. Unable to identify eliciting factors. Pain is worse with direct palpation of the lateral aspect of the right thigh and with standing. Pt reports a long history of similar pain, but without radiation to the leg. Denies midline tenderness, fevers, chills, or diaphoresis. Denies urinary symptoms. RME note indicates the pt was experiencing weakness and inability to stand on the right leg. The pt clarified that she had difficulty standing secondary to pain rather than weakness. Pt takes Percocet and Gabapentin. Prescribed by PCP. Last used Percocet yesterday. Social: - Denies ever using illicit drugs, including needle injections - Denies ever receiving a tattoo Medical Hx: - HTN - Borderline DM - Asthma Surgical Hx: - Hysterectomy [employer] (Ref Number [id number]) Rx Written Rx Dispensed Drug Quantity Days Supply Prescriber Name Payment Method Dispenser oxycodone-acetaminophen 5-325 mg tab 90 30 Janina Navarrete [employer] [facility] oxycodone-acetaminophen 5-325 mg tab 90 30 Lloyd, Ammir [employer] [facility] oxycodone-acetaminophen 5-325 mg tab 90 30 Lloyd, Ammir [employer] [facility] oxycodone-acetaminophen 5-325 mg tab 90 30 Lloyd, Ammir [employer] [facility] oxycodone-acetaminophen 5-325 mg tab 90 30 Lloyd, Ammir [employer] [facility] oxycodone-acetaminophen 5-325 mg tab 90 30 Lloyd, Ammir [employer] [facility] oxycodone-acetaminophen 5-325 mg tab 21 7 Lloyd, Ammir [employer] [facility] oxycodone-acetaminophen 5-325 mg tab 90 30 Lloyd, Ammir [employer] [facility] oxycodone-acetaminophen 5-325 mg tab 90 30 Lloyd, Ammir [employer] [facility] oxycodone-acetaminophen 5-325 mg tab 90 30 Lloyd, Ammir [employer] [facility] oxycodone-acetaminophen 5-325 mg tab 90 30 Lloyd, Ammir [employer] [facility] oxycodone-acetaminophen 5-325 mg tab 90 30 Lloyd, Ammir [employer] [facility] Review of Systems: In addition to that documented in the HPI above, the additional ROS was obtained: Constitutional- Denies fevers or chills Head- Denies vision changes ENMT- Denies sore throat CV- Denies chest pain Resp- Denies SOB GI- Denies vomiting or diarrhea - Denies painful urination MSK- Denies recent trauma Skin- Denies new rashes Neuro- Denies new numbness or tingling or weakness Endocrine- Denies polyuria Heme- Denies bleeding or bruising Physical Examination: Vital signs and nursing notes reviewed. Constitutional- Obese, elderly adult female in no acute distress or obvious discomfort. Found semi-fowlers on hospital bed. Answered all questions appropriately and completely. Head- Normocephalic. No obvious external signs of trauma. Neck- Supple, trachea is midline. Cardiovascular / Chest- Regular rate and regular rhythm. No murmur, rubs, clicks, or gallops. Peripheral pulses- radial pulses full. Respiratory- Breathing unlabored. Equal chest rise and fall. Clear to auscultation bilaterally. No stridor, no wheezing, no rhonchi. Gastrointestinal- abdomen is soft, non-tender, non-distended. Neuro- Alert and oriented x4. Moving all four extremities spontaneously. No facial asymmetry. No slurred speech. Normal R Babinski sign. MSK- Diffuse tenderness to posterolateral aspect of right hip. Pelvis stable. Right lower extremity flexion 4/5 (suspected secondary to pain), extension 5/5, adduction 5/5, abduction 5/5. Dorsiflexion and plantarflexion 5/5. Right DPL 3+. Extremity is warm and well perfused. Back- No lumbar or sacral midline spinal tenderness. No paraspinal tenderness. Skin- Warm, dry, and intact. No bruising, rashes, or other lesions. - No R or L CVA tenderness. Psych- Affect- appropriate. Mood- normal. Speech was non-labored, non- pressured. MDM: 74 y/o female presenting with atraumatic right hip pain with episodic radiation to posterior aspect of right leg. Similar but more intense than chronic arthritic pain. Afebrile. Vitals unremarkable for hypotension or tachycardia. Physical exam as described above. Low suspicion for spinal cord pathology with weakness, midline tenderness, or infectious symptoms (epidural abscess). Low suspicion for fracture or dislocation. Suspect likely arthritic pain. Will evaluate with plain film to evaluate for blastic or lytic lesions. Ordered Tylenol and a lidoderm patch for pain relief. Reviewed hip and pelvis plain film and radiology report. No acute fracture or dislocation. No lytic or blastic lesions. Continue to suspect arthritic pain. Pt reported unchanged pain to ED Attending. Ordered IM Morphine. 11 Oct 2019 19:04 PM Pt reassessed. Reports pain has improved. Able to stand and bare weight on the right extremity. Continue to suspect arthritic pain with possible sciatica. Discussed radiology findings with pt and pts daughter. Answered all questions. Provided return precautions. Pt expressed verbal understanding and agreement with plan to discharge home with outpatient follow up. Provided copies of todays results. Cautioned about effects of narcotics. Sergio Bojorquez M.D., PGY2 Emergency Medicine Resident Past History - Past Medical History Allergies/Adverse Reactions: Allergies Allergy/AdvReac Type Severity Reaction Status Date / Time Penicillins Allergy Severe Difficulty Verified 10/11/19 14:15 Breathing Home Medications: Ambulatory Orders Chlorthalidone 25 mg PO DAILY 07/22/17 Enalapril Maleate [Vasotec] 20 mg PO DAILY 07/22/17 Metoprolol Tartrate 50 mg PO BIDLASIX 07/22/17 Montelukast Na [Singulair -] 10 mg PO HS 07/22/17 Rivaroxaban [Xarelto -] 20 mg PO DAILY 07/22/17 metFORMIN HCL [Metformin HCl] 500 mg PO DAILY 07/22/17 Diltiazem HCl [Diltiazem 24Hr Cd] 180 mg PO DAILY #30 cap 07/25/17 Pantoprazole Sodium [Protonix -] 40 mg PO BID #60 tablet.ec 07/25/17 Sucralfate Oral Suspension [Carafate Oral Suspension -] 1 gm PO QID #30 ml 07/25/17 Asthma: Yes COPD: No Diabetes: Yes HTN: Yes Hypercholesterolemia: Yes - Psycho Social/Smoking Cessation Hx Smoking History: Never smoked Have you smoked in the past 12 months: No Information on smoking cessation initiated: No Hx Alcohol Use: No Drug/Substance Use Hx: No Substance Use Type: None *Physical Exam - Vital Signs Last Vital Signs Temp Pulse Resp BP Pulse Ox 97.8 F 97 H 17 185/97 H 98 10/11/19 14:11 10/11/19 14:11 10/11/19 14:11 10/11/19 14:11 10/11/19 14:11 ED Treatment Course - RADIOLOGY Radiology Studies Ordered: Category Date Time Status HIP & PELVIS-RIGHT [RAD] Stat Radiology 10/11/19 16:15 Ordered Discharge - Discharge Information Problems reviewed: Yes Clinical Impression/Diagnosis: Right leg pain Condition: Good Disposition: HOME - Admission No - Follow up/Referral Referrals: Negrita Desai MD [Primary Care Provider] - - Patient Discharge Instructions Patient Printed Discharge Instructions: Osteoarthritis (Alternative Therapy), DI for Osteoarthritis Additional Instructions: You were seen today for right hip pain with episodes of movement down the right leg. Your xray did not show any signs of fracture, dislocation, or other bri rning signs. The pain is likely an arthritis flair. Unfortunately, this type of pain is not something that can be cured in the emergency department. You received Morphine this evening. Do not drive or operate heavy machinery. Do not take any further narcotics this evening (Percocet). You will likely continue to have some discomfort over the next several days. You can take over the counter Tylenol as needed for pain. Take as directed on the package insert. Do not exceed the recommended dosage. You can also try over the counter Icy-Hot Patches. They are available at your local pharmacy. Follow up with your primary care doctor in the next week. You will need to call to make an appointment. The number is included in this packet. A copy of todays results are attached to this packet. Take it to the appointment so your doctor can review them. Go to the nearest emergency department if your condition worsens or you feel like you need additional emergency evaluation. Print Language: GRENADIAN - Post Discharge Activity
[2019-10-11] MEDS ORDERED: ACETAMINOPHEN 325 MG TABLET (FP) ONE (16:20)
[2019-10-11] MEDS ORDERED: LIDOCAINE 5% TOPICAL PATCH ONE (16:20)
[2019-10-11] MEDS ORDERED: morphine CARPU-JECT 2 MG/1 ML DISP.SYRIN IM ONE (18:08)
[2019-10-11] MEDS ORDERED: MORPHINE SULFATE 8 MG/ML VIAL ONE (18:20)
[2019-10-11 19:19] VITALS: BP 175/90; PULSE 90
[2019-10-11] MEDS ORDERED: LIDOCAINE PATCH REMOVAL MC SCH (22:00)
== END 2019-10-11 19:23 | disposition home or self-care (01) ==
LOC: JER 13:37 → JERFT 13:37 → JER 19:23
PROC: 3E023NZ Introduction of Analgesics, Hypnotics, Sedatives into Muscle, Percutaneous Approach (ICD-10-PCS; principal; 2019-10-11)
DX: M16.11 Unilateral primary osteoarthritis, right hip (principal); I10 Essential (primary) hypertension; E11.9 Type 2 diabetes mellitus without complications; Z79.84 Long term (current) use of oral hypoglycemic drugs; E78.5 Hyperlipidemia, unspecified; J45.909 Unspecified asthma, uncomplicated; Z88.0 Allergy status to penicillin
CPT/HCPCS: 73523-TC-FY; 96372; 99284-25

== ENCOUNTER 2021-01-27 10:13 | Inpatient (IN) | payer BC, OTHER ==
[2021-01-27] MEDS ORDERED: MAGNESIUM SULFATE IN WATER 2 GM/50 ML IVPB IVPB ONE (10:29)
[2021-01-27] MEDS ORDERED: ALBUTEROL SO4 2.5/IPRATROPIUM 0.5 INH SOL 3 ML VIAL.NEB. NEB ONE ×3 (10:33→11:01)
[2021-01-27] MEDS ORDERED: MAGNESIUM SULF 50% (8.12 MEQ/2 ML-1 GM VIAL) IVPB ONE (10:57)
[2021-01-27] MEDS: NITROGLYCERIN 25MG/D5W 250ML 25 MG/250 ML ML IVPB SCH (11:00)
[2021-01-27] MEDS ORDERED: MAGNESIUM SULF 50% (8.12 MEQ/2 ML-1 GM VIAL) ONE (11:01)
[2021-01-27] MEDS ORDERED: DEXAMETHASONE SOD PHOSPHATE 10 MG/1 ML VIAL ONE (11:01)
[2021-01-27 11:09] LABS: BASO % 0.3 % (0-2.0); EOS % 1.8 % (0-4.5); HEMATOCRIT 38.7 % (32.4-45.2); HEMOGLOBIN 11.8 GM/dL (10.7-15.3); LYMPH % 7.7 % (8-40); MCHC 30.5 g/dl (32.0-36.0); MEAN CELL VOLUME 72.2 fl (80-96); MEAN PLT VOLUME 9.6 fl (7.5-11.1); MONO % 4.4 % (3.8-10.2); NEUT % 85.8 % (42.8-82.8); PLATELET COUNT 265 10^3/uL (134-434); RBC 5.36 M/mm3 (3.60-5.2); RDW 15.8 % (11.6-15.6); WHITE BLOOD COUNT 19.4 K/mm3 (4.0-10.0)
[2021-01-27] MEDS ORDERED: FUROSEMIDE 40 MG/4 ML INJECTABLE VIAL ONE ×2 (11:10→12:53)
[2021-01-27] MEDS ORDERED: NITROGLYCERIN 25MG/D5W 250ML 25 MG/250 ML ML IVPB SCH (11:15)
[2021-01-27 11:17] LABS: INR 0.96 (0.83-1.09); PROTHROMBIN TIME (PATIENT) 11.8 SEC (9.7-13.0); VENOUS O2 SATURATION 88.8 % (70-80); VENOUS PH 7.33 (7.310-7.410)
[2021-01-27 11:20] LABS: ACTIVATED PTT 22.8 SECONDS (25.2-36.5)
[2021-01-27 11:23] LABS: EPI CELLS >36 /uL (0-25.1); HYALINE CASTS 1 /uL (0-3.1); URINE APPEARANCE CLEAR; URINE BACTERIA 1375 /uL (0-1359); URINE BILIRUBIN NEGATIVE (NEGATIVE); URINE COLOR YELLOW; URINE GLUCOSE (UA) 3+ (NEGATIVE); URINE KETONE NEGATIVE (NEGATIVE); URINE LEUK ESTERASE NEGATIVE (NEGATIVE); URINE NITRITE NEGATIVE (NEGATIVE); URINE PROTEIN 3+ (NEGATIVE); URINE RBC 1390 /uL (0-23.9); URINE UROBILINOGEN 0.2 mg/dL (0.2-1.0); URINE WBC 39 /uL (0-25.8)
[2021-01-27 11:32] LABS: CALCIUM 9.7 mg/dL (8.5-10.1); CHLORIDE 101 mmol/L (98-107); SODIUM 139 mmol/L (136-145)
[2021-01-27 11:33] LABS: ALBUMIN 4.3 g/dl (3.4-5.0); ANION GAP 8 MMOL/L (8-16); BLOOD UREA NITROGEN 12.4 mg/dL (7-18); CO2 30 mmol/L (21-32); GLUCOSE,RANDOM 371 mg/dL (74-106); MAGNESIUM 2.5 mg/dL (1.8-2.4)
[2021-01-27 11:36] LABS: SGOT/AST 82 U/L (15-37); SGPT/ALT 36 U/L (13-61)
[2021-01-27 11:37] LABS: BILIRUBIN,TOTAL 0.7 mg/dL (0.2-1); TOT PROT 8.2 g/dl (6.4-8.2)
[2021-01-27 11:39] LABS: ALK PHOS 116 U/L (45-117)
[2021-01-27 11:41] LABS: N-TERMINAL BNP 1639.6 pg/ml (5-125)
[2021-01-27 11:52] LABS: ANISOCYTOSIS 1+; MACROCYTOSIS 0; PLATELET ESTIMATE NORMAL
[2021-01-27] MEDS ORDERED: FUROSEMIDE 40 MG/4 ML INJECTABLE VIAL IVPUSH ONE ×2 (12:04→12:50)
[2021-01-27] MEDS ORDERED: ACETAMINOPHEN 325 MG TABLET (FP) PO PRN (12:29)
[2021-01-27] MEDS ORDERED: hydrALAZINE HCL 20 MG/ML VIAL IVPUSH PRN ×2 (14:30→14:54)
[2021-01-27] MEDS ORDERED: CHLORTHALIDONE 50 MG TABLET PO SCH (14:45)
[2021-01-27] MEDS ORDERED: chlorproMAZINE HCL 25 MG TABLET PO SCH (14:45)
[2021-01-27] MEDS ORDERED: hydrALAZINE HCL 20 MG/ML VIAL ONE (14:54)
[2021-01-27] MEDS: GABAPENTIN 300 MG CAPSULE PO SCH ×2 (14:58→22:04)
[2021-01-27] MEDS: hydrALAZINE HCL 25 MG TABLET (FP) PO SCH ×2 (14:58→22:04)
[2021-01-27] MEDS ORDERED: PT OWN MED DRAWER 7, Y5N ONE ×2 (16:17→21:19)
[2021-01-27] MEDS: CHLORTHALIDONE 25 MG TABLET PO SCH (16:20)
[2021-01-27] MEDS: ALBUTEROL SO4 2.5/IPRATROPIUM 0.5 INH SOL 3 ML VIAL.NEB. NEB SCH ×2 (16:50→20:00)
[2021-01-27] MEDS: INSULIN SLIDING SCALE (NOVOLOG) 1 VIAL SQ SCH ×2 (16:58→22:06)
[2021-01-27 18:34] LABS: BASO % 0.1 % (0-2.0); HEMATOCRIT 32.3 % (32.4-45.2); HEMOGLOBIN 10.1 GM/dL (10.7-15.3); LYMPH % 3.7 % (8-40); MCH 22.2 pg (25.7-33.7); MCHC 31.2 g/dl (32.0-36.0); MEAN CELL VOLUME 71.1 fl (80-96); MEAN PLT VOLUME 9.8 fl (7.5-11.1); MONO % 1.6 % (3.8-10.2); NEUT % 94.6 % (42.8-82.8); PLATELET COUNT 214 10^3/uL (134-434); RBC 4.55 M/mm3 (3.60-5.2); RDW 15.7 % (11.6-15.6); WHITE BLOOD COUNT 12.9 K/mm3 (4.0-10.0)
[2021-01-27 18:45] LABS: PH,URINE 5.5 (5.0-8.0); URINE APPEARANCE CLEAR; URINE BILIRUBIN NEGATIVE (NEGATIVE); URINE COLOR YELLOW; URINE GLUCOSE (UA) 3+ (NEGATIVE); URINE KETONE NEGATIVE (NEGATIVE); URINE LEUK ESTERASE NEGATIVE (NEGATIVE); URINE NITRITE NEGATIVE (NEGATIVE); URINE PROTEIN NEGATIVE (NEGATIVE); URINE UROBILINOGEN 0.2 mg/dL (0.2-1.0)
[2021-01-27 18:53] LABS: CHLORIDE 92 mmol/L (98-107); SODIUM 136 mmol/L (136-145)
[2021-01-27 18:54] LABS: MAGNESIUM 1.8 mg/dL (1.8-2.4)
[2021-01-27 18:55] LABS: ANION GAP 15 MMOL/L (8-16); BLOOD UREA NITROGEN 12.6 mg/dL (7-18); CO2 29 mmol/L (21-32)
[2021-01-27 18:56] LABS: ALBUMIN 3.7 g/dl (3.4-5.0)
[2021-01-27 18:58] LABS: CREATININE 1.2 mg/dL (0.55-1.3); PHOSPHOROUS 3.2 mg/dL (2.5-4.9); SGPT/ALT 26 U/L (13-61)
[2021-01-27 18:59] LABS: SGOT/AST 31 U/L (15-37)
[2021-01-27 19:00] LABS: BILIRUBIN,TOTAL 0.7 mg/dL (0.2-1); TOT PROT 6.9 g/dl (6.4-8.2)
[2021-01-27 19:01] LABS: ALK PHOS 94 U/L (45-117)
[2021-01-27 19:16] LABS: ANISOCYTOSIS 2+; MACROCYTOSIS 0; OVALOCYTE 2+; PLATELET ESTIMATE NORMAL; TARGET CELLS 1+
[2021-01-27 19:18] LABS: GLUCOSE,RANDOM 460 mg/dL (74-106)
[2021-01-27] MEDS: methylPREDNISolone NA SUCC 40 MG/1 ML VIAL IVPUSH SCH (22:03)
[2021-01-27] MEDS: MONTELUKAST NA 10 MG TABLET PO SCH (22:04)
[2021-01-27] MEDS: CHLORHEXIDINE GLUCONATE 4% CLEANSER FOR DECOLONIZATION TP SCH (22:04)
[2021-01-27] MEDS: METOPROLOL TARTRATE 50 MG TABLET (FP) PO SCH (22:04)
[2021-01-27] MEDS: MUPIROCIN 2% TOPICAL OINTMENT FOR DECOLONIZATION NS SCH (22:04)
[2021-01-27] MEDS: PANTOPRAZOLE 40 MG TABLET PO SCH (22:04)
[2021-01-27] MEDS: DOCUSATE SODIUM 100 MG CAPSULE (FP) PO SCH (22:04)
[2021-01-27] MEDS: APIXABAN 5 MG TABLET PO SCH (22:04)
[2021-01-28] MEDS ORDERED: POTASSIUM CHLORIDE TABS 20 MEQ TABLET.ER (FP) PO ONE ×2 (00:19→05:45)
[2021-01-28] MEDS: methylPREDNISolone NA SUCC 40 MG/1 ML VIAL IVPUSH SCH ×2 (04:00→21:09)
[2021-01-28] MEDS: INSULIN SLIDING SCALE (NOVOLOG) 1 VIAL SQ SCH ×4 (06:27→23:39)
[2021-01-28] MEDS: GABAPENTIN 300 MG CAPSULE PO SCH ×3 (06:27→21:10)
[2021-01-28] MEDS: hydrALAZINE HCL 25 MG TABLET (FP) PO SCH ×3 (06:27→21:10)
[2021-01-28 06:43] LABS: BASO % 0.1 % (0-2.0); HEMOGLOBIN 10.3 GM/dL (10.7-15.3); LYMPH % 7.6 % (8-40); MCHC 31.3 g/dl (32.0-36.0); MEAN CELL VOLUME 70.2 fl (80-96); MEAN PLT VOLUME 9.8 fl (7.5-11.1); MONO % 5.7 % (3.8-10.2); NEUT % 86.6 % (42.8-82.8); PLATELET COUNT 237 10^3/uL (134-434); RBC 4.71 M/mm3 (3.60-5.2); RDW 15.3 % (11.6-15.6); WHITE BLOOD COUNT 12.6 K/mm3 (4.0-10.0)
[2021-01-28 06:56] LABS: MAGNESIUM 2.2 mg/dL (1.8-2.4)
[2021-01-28 07:00] LABS: PHOSPHOROUS 2.6 mg/dL (2.5-4.9)
[2021-01-28] MEDS ORDERED: PT OWN MED DRAWER 7, Y5N ONE ×4 (07:09→20:51)
[2021-01-28] MEDS: ALBUTEROL SO4 2.5/IPRATROPIUM 0.5 INH SOL 3 ML VIAL.NEB. NEB SCH ×4 (07:30→20:29)
[2021-01-28] MEDS: MUPIROCIN 2% TOPICAL OINTMENT FOR DECOLONIZATION NS SCH ×2 (09:06→21:17)
[2021-01-28] MEDS: PANTOPRAZOLE 40 MG TABLET PO SCH ×2 (09:07→21:10)
[2021-01-28] MEDS: LORATADINE 10 MG TABLET PO SCH (09:07)
[2021-01-28] MEDS: LISINOPRIL 5 MG TABLET PO SCH (09:07)
[2021-01-28] MEDS: METOPROLOL TARTRATE 50 MG TABLET (FP) PO SCH ×2 (09:07→21:09)
[2021-01-28] MEDS: APIXABAN 5 MG TABLET PO SCH ×2 (09:07→21:10)
[2021-01-28] MEDS: FUROSEMIDE 40 MG/4 ML INJECTABLE VIAL IVPB SCH (09:07)
[2021-01-28] MEDS: CHLORTHALIDONE 25 MG TABLET PO SCH (09:07)
[2021-01-28] MEDS ORDERED: CEPHALEXIN MONOHYDRATE 500 MG CAPSULE (UD) PO SCH (10:00)
[2021-01-28] MEDS ORDERED: INSULIN (NOVOLOG) ASPART 100 UNITS/ML 10ML VIAL SQ ONE (12:45)
[2021-01-28] MEDS: NITROGLYCERIN 25MG/D5W 250ML 25 MG/250 ML ML IVPB SCH (12:47)
[2021-01-28 14:33] VITALS: BMI 38.2
[2021-01-28] MEDS ORDERED: RIVAROXABAN 20 MG TABLET PO SCH (18:00)
[2021-01-28] MEDS: DOCUSATE SODIUM 100 MG CAPSULE (FP) PO SCH (21:10)
[2021-01-28] MEDS: MONTELUKAST NA 10 MG TABLET PO SCH (21:10)
[2021-01-28] MEDS: CHLORHEXIDINE GLUCONATE 4% CLEANSER FOR DECOLONIZATION TP SCH (21:17)
[2021-01-28] MEDS: NITROFURANTOIN MACROCRYSTAL 50 MG CAPSULE (FP) PO SCH (21:34)
[2021-01-29] MEDS: INSULIN SLIDING SCALE (NOVOLOG) 1 VIAL SQ SCH ×4 (05:59→21:47)
[2021-01-29] MEDS: GABAPENTIN 300 MG CAPSULE PO SCH ×3 (05:59→21:38)
[2021-01-29] MEDS: hydrALAZINE HCL 25 MG TABLET (FP) PO SCH ×3 (05:59→21:37)
[2021-01-29] MEDS: ALBUTEROL SO4 2.5/IPRATROPIUM 0.5 INH SOL 3 ML VIAL.NEB. NEB SCH ×4 (07:50→20:10)
[2021-01-29] MEDS ORDERED: PT OWN MED DRAWER 7, Y5N ONE (09:12)
[2021-01-29] MEDS: NITROFURANTOIN MACROCRYSTAL 50 MG CAPSULE (FP) PO SCH ×2 (09:29→22:14)
[2021-01-29] MEDS: FUROSEMIDE 40 MG/4 ML INJECTABLE VIAL IVPB SCH (09:30)
[2021-01-29] MEDS: METOPROLOL TARTRATE 50 MG TABLET (FP) PO SCH ×2 (09:30→21:38)
[2021-01-29] MEDS: methylPREDNISolone NA SUCC 40 MG/1 ML VIAL IVPUSH SCH (09:30)
[2021-01-29] MEDS: PANTOPRAZOLE 40 MG TABLET PO SCH ×2 (09:31→21:42)
[2021-01-29] MEDS: LISINOPRIL 5 MG TABLET PO SCH (09:31)
[2021-01-29] MEDS: LORATADINE 10 MG TABLET PO SCH (09:32)
[2021-01-29] MEDS: APIXABAN 5 MG TABLET PO SCH ×2 (09:32→21:37)
[2021-01-29] MEDS ORDERED: predniSONE 20 MG TABLET (UD) PO SCH (10:00)
[2021-01-29 11:09] LABS: CALCIUM 9.5 mg/dL (8.5-10.1)
[2021-01-29 11:10] LABS: ALBUMIN 3.6 g/dl (3.4-5.0); BLOOD UREA NITROGEN 26.6 mg/dL (7-18)
[2021-01-29] MEDS: MUPIROCIN 2% TOPICAL OINTMENT FOR DECOLONIZATION NS SCH ×2 (11:10→21:37)
[2021-01-29 11:13] LABS: CREATININE 1.3 mg/dL (0.55-1.3)
[2021-01-29 11:14] LABS: BILIRUBIN,TOTAL 0.6 mg/dL (0.2-1); TOT PROT 7.2 g/dl (6.4-8.2)
[2021-01-29] MEDS: CHLORHEXIDINE GLUCONATE 4% CLEANSER FOR DECOLONIZATION TP SCH (21:37)
[2021-01-29] MEDS: MONTELUKAST NA 10 MG TABLET PO SCH (21:38)
[2021-01-29] MEDS: DOCUSATE SODIUM 100 MG CAPSULE (FP) PO SCH (22:14)
[2021-01-30] MEDS: hydrALAZINE HCL 25 MG TABLET (FP) PO SCH ×3 (06:19→21:03)
[2021-01-30] MEDS: GABAPENTIN 300 MG CAPSULE PO SCH ×3 (06:19→21:03)
[2021-01-30] MEDS: INSULIN SLIDING SCALE (NOVOLOG) 1 VIAL SQ SCH ×3 (06:27→17:16)
[2021-01-30] MEDS ORDERED: sitaGLIPtin PHOSPHATE 50 MG TABLET PO SCH (07:00)
[2021-01-30] MEDS ORDERED: PT OWN MED DRAWER 7, Y5N ONE ×3 (07:53→20:55)
[2021-01-30] MEDS ORDERED: LISINOPRIL 5 MG TABLET PO SCH (08:14)
[2021-01-30] MEDS: ALBUTEROL SO4 2.5/IPRATROPIUM 0.5 INH SOL 3 ML VIAL.NEB. NEB SCH ×5 (08:15→20:00)
[2021-01-30] MEDS: APIXABAN 5 MG TABLET PO SCH ×2 (09:20→21:04)
[2021-01-30] MEDS: FUROSEMIDE 40 MG/4 ML INJECTABLE VIAL IVPB SCH (09:20)
[2021-01-30] MEDS: METOPROLOL TARTRATE 50 MG TABLET (FP) PO SCH ×2 (09:20→21:03)
[2021-01-30] MEDS: LORATADINE 10 MG TABLET PO SCH (09:20)
[2021-01-30] MEDS: NITROFURANTOIN MACROCRYSTAL 50 MG CAPSULE (FP) PO SCH ×2 (09:21→21:03)
[2021-01-30] MEDS: PANTOPRAZOLE 40 MG TABLET PO SCH ×2 (09:21→21:03)
[2021-01-30] MEDS: LISINOPRIL 10 MG TABLET PO SCH (09:21)
[2021-01-30] MEDS: MUPIROCIN 2% TOPICAL OINTMENT FOR DECOLONIZATION NS SCH (09:26)
[2021-01-30] MEDS ORDERED: ACETAMINOPHEN 325 MG TABLET (FP) PO PRN (15:40)
[2021-01-30] MEDS ORDERED: hydrALAZINE HCL 20 MG/ML VIAL IVPUSH PRN (15:40)
[2021-01-30] MEDS: DOCUSATE SODIUM 100 MG CAPSULE (FP) PO SCH (21:03)
[2021-01-30] MEDS: MONTELUKAST NA 10 MG TABLET PO SCH (21:03)
[2021-01-30] MEDS ORDERED: CHLORHEXIDINE GLUCONATE 4% CLEANSER FOR DECOLONIZATION TP SCH (22:00)
[2021-01-30] MEDS ORDERED: MUPIROCIN 2% TOPICAL OINTMENT FOR DECOLONIZATION NS SCH (22:00)
[2021-01-31] MEDS: INSULIN SLIDING SCALE (NOVOLOG) 1 VIAL SQ SCH ×3 (06:01→16:58)
[2021-01-31] MEDS: hydrALAZINE HCL 25 MG TABLET (FP) PO SCH ×3 (06:02→21:27)
[2021-01-31] MEDS: GABAPENTIN 300 MG CAPSULE PO SCH ×3 (06:02→21:27)
[2021-01-31] MEDS: ALBUTEROL SO4 2.5/IPRATROPIUM 0.5 INH SOL 3 ML VIAL.NEB. NEB SCH ×4 (08:02→20:00)
[2021-01-31] MEDS: PANTOPRAZOLE 40 MG TABLET PO SCH ×2 (09:44→21:27)
[2021-01-31] MEDS: LORATADINE 10 MG TABLET PO SCH (09:44)
[2021-01-31] MEDS: LISINOPRIL 10 MG TABLET PO SCH (09:45)
[2021-01-31] MEDS: APIXABAN 5 MG TABLET PO SCH ×2 (09:46→21:26)
[2021-01-31] MEDS ORDERED: PT OWN MED DRAWER 7, Y5N ONE ×3 (09:47→21:08)
[2021-01-31] MEDS: METOPROLOL TARTRATE 50 MG TABLET (FP) PO SCH ×2 (09:48→21:26)
[2021-01-31] MEDS: NITROFURANTOIN MACROCRYSTAL 50 MG CAPSULE (FP) PO SCH ×2 (09:49→21:27)
[2021-01-31] MEDS: FUROSEMIDE 40 MG/4 ML INJECTABLE VIAL IVPB SCH (11:32)
[2021-01-31] MEDS ORDERED: INSULIN (NOVOLOG) ASPART 100 UNITS/ML 10ML VIAL ONE (16:50)
[2021-01-31] MEDS: DOCUSATE SODIUM 100 MG CAPSULE (FP) PO SCH (21:27)
[2021-01-31] MEDS: MONTELUKAST NA 10 MG TABLET PO SCH (21:27)
[2021-02-01] MEDS: INSULIN SLIDING SCALE (NOVOLOG) 1 VIAL SQ SCH (06:15)
[2021-02-01] MEDS: GABAPENTIN 300 MG CAPSULE PO SCH (06:16)
[2021-02-01] MEDS: hydrALAZINE HCL 25 MG TABLET (FP) PO SCH (06:16)
[2021-02-01] MEDS: ALBUTEROL SO4 2.5/IPRATROPIUM 0.5 INH SOL 3 ML VIAL.NEB. NEB SCH (07:25)
[2021-02-01] MEDS: FUROSEMIDE 40 MG/4 ML INJECTABLE VIAL IVPB SCH (09:28)
[2021-02-01] MEDS: LORATADINE 10 MG TABLET PO SCH (09:29)
[2021-02-01] MEDS: LISINOPRIL 10 MG TABLET PO SCH (09:29)
[2021-02-01] MEDS: APIXABAN 5 MG TABLET PO SCH (09:29)
[2021-02-01] MEDS: NITROFURANTOIN MACROCRYSTAL 50 MG CAPSULE (FP) PO SCH (09:29)
[2021-02-01] MEDS: METOPROLOL TARTRATE 50 MG TABLET (FP) PO SCH (09:29)
[2021-02-01] MEDS: PANTOPRAZOLE 40 MG TABLET PO SCH (09:30)
[2021-02-01 09:52] VITALS: BP 179/96; PULSE 78; TEMP 98.9
== END 2021-02-01 10:56 | disposition home health service (06) | DRG 291 ==
LOC: JER 10:13 → JERBED 11:01 → JICU 14:02 → J7W 01-30 14:30
PROVIDERS: ADMIT Family Medicine; ATTEND Family Medicine
DX: I11.0 Hypertensive heart disease with heart failure (principal); J81.0 Acute pulmonary edema; I16.1 Hypertensive emergency; N39.0 Urinary tract infection, site not specified; I31.3 Pericardial effusion (noninflammatory); I50.33 Acute on chronic diastolic (congestive) heart failure; E78.5 Hyperlipidemia, unspecified; J45.909 Unspecified asthma, uncomplicated; K21.9 Gastro-esophageal reflux disease without esophagitis; D64.9 Anemia, unspecified; M54.5 Low back pain; I44.7 Left bundle-branch block, unspecified; I48.0 Paroxysmal atrial fibrillation; R73.03 Prediabetes; D72.829 Elevated white blood cell count, unspecified; B96.20 Unspecified Escherichia coli [E. coli] as the cause of diseases classified elsewhere; R26.9 Unspecified abnormalities of gait and mobility; E66.9 Obesity, unspecified; Z68.38 Body mass index [BMI] 38.0-38.9, adult; Z88.0 Allergy status to penicillin
CPT/HCPCS: 36415; 71045-TC-FY; 80053; 81003; 82550; 82553; 82803; 82962; 83036; 83735; 83880; 84100; 84484; 85025; 85610; 85730; 87040; 87086; 87186; 87804; 93005; 93010; 93306-TC; 94010; 94640; 94660; 97116-GP; 97161-GP; 99285-25; C9803; U0003; U0005

== ENCOUNTER 2021-08-10 05:16 | Inpatient (IN) | payer OTHER ==
[2021-08-10] MEDS ORDERED: ALBUTEROL SO4 2.5/IPRATROPIUM 0.5 INH SOL 3 ML VIAL.NEB. NEB ONE (05:29)
[2021-08-10] MEDS: ALBUTEROL SO4 2.5/IPRATROPIUM 0.5 INH SOL 3 ML VIAL.NEB. NEB SCH ×4 (05:40→06:58)
[2021-08-10] MEDS ORDERED: MAGNESIUM SULFATE IN WATER 2 GM/50 ML IVPB IVPB ONE (06:15)
[2021-08-10] MEDS ORDERED: ALBUTEROL SO4 0.083% IH SOL 2.5 MG/3 ML VIAL.NEB. NEB ONE (06:16)
[2021-08-10] MEDS: ALBUTEROL SO4 0.083% IH SOL 2.5 MG/3 ML VIAL.NEB. NEB SCH ×3 (06:26→07:23)
[2021-08-10 06:37] LABS: VENOUS BASE EXCESS 1.7 mmol/L (-2-2); VENOUS O2 SATURATION 59.8 % (70-80); VENOUS PCO2 62.5 mmHg (38-52); VENOUS PH 7.294 (7.310-7.410)
[2021-08-10] MEDS ORDERED: FUROSEMIDE 40 MG/4 ML INJECTABLE VIAL IVPUSH ONE (06:47)
[2021-08-10 07:08] LABS: HEMATOCRIT 32.5 % (32.4-45.2); HEMOGLOBIN 9.9 GM/dL (10.7-15.3); MCHC 30.3 g/dl (32.0-36.0); MEAN CELL VOLUME 69.3 fl (80-96); MEAN PLT VOLUME 9.9 fl (7.5-11.1); PLATELET COUNT 289 10^3/uL (134-434); RBC 4.69 M/mm3 (3.60-5.2); RDW 17.3 % (11.6-15.6); WHITE BLOOD COUNT 19.7 K/mm3 (4.0-10.0)
[2021-08-10] MEDS ORDERED: FUROSEMIDE 40 MG/4 ML INJECTABLE VIAL ONE (07:17)
[2021-08-10 07:27] LABS: CHLORIDE 100 mmol/L (98-107); SODIUM 140 mmol/L (136-145)
[2021-08-10 07:29] LABS: CALCIUM 8.8 mg/dL (8.5-10.1)
[2021-08-10 07:31] LABS: ANION GAP 10 MMOL/L (8-16); CO2 31 mmol/L (21-32); MAGNESIUM 2.3 mg/dL (1.8-2.4)
[2021-08-10 07:34] LABS: CREATININE 1.2 mg/dL (0.55-1.3); SGOT/AST 29 U/L (15-37); SGPT/ALT 30 U/L (13-61)
[2021-08-10 07:36] LABS: ALK PHOS 136 U/L (45-117); BILIRUBIN,TOTAL 0.4 mg/dL (0.2-1); TOT PROT 7.2 g/dl (6.4-8.2)
[2021-08-10 07:39] LABS: N-TERMINAL BNP 1474.5 pg/ml (5-125)
[2021-08-10 07:47] LABS: ALBUMIN 3.7 g/dl (3.4-5.0); GLUCOSE,RANDOM 411 mg/dL (74-106)
[2021-08-10] MEDS ORDERED: AZITHROMYCIN IVPB 500 MG in DEXTROSE 5%-WATER - 250 ML IVPB ONE (07:57)
[2021-08-10] MEDS ORDERED: CEFTRIAXONE 1,000 MG in DEXTROSE 5%-WATER - 50 ML IVPB ONE (07:57)
[2021-08-10] MEDS ORDERED: CEFTRIAXONE 1 GM/50 ML BAG ONE (08:10)
[2021-08-10] MEDS ORDERED: AZITHROMYCIN IVPB 500 MG/250 ML BAG IVPB ONE (08:10)
[2021-08-10 08:31] LABS: EPI CELLS 24 /uL (0-25.1); HYALINE CASTS 1 /uL (0-3.1); PH,URINE 6.5 (5.0-8.0); URINE APPEARANCE CLOUDY; URINE BACTERIA 55 /uL (0-1359); URINE BILIRUBIN NEGATIVE (NEGATIVE); URINE COLOR YELLOW; URINE GLUCOSE (UA) 3+ (NEGATIVE); URINE KETONE NEGATIVE (NEGATIVE); URINE LEUK ESTERASE NEGATIVE (NEGATIVE); URINE NITRITE NEGATIVE (NEGATIVE); URINE PROTEIN 2+ (NEGATIVE); URINE RBC 26 /uL (0-23.9); URINE UROBILINOGEN 0.2 mg/dL (0.2-1.0); URINE WBC 22 /uL (0-25.8)
[2021-08-10 08:38] LABS: ANISOCYTOSIS 2+; MACROCYTOSIS 0; OVALOCYTE 1+; PLATELET ESTIMATE NORMAL; TARGET CELLS 1+; TEAR DROP CELLS 1+
[2021-08-10] MEDS ORDERED: INSULIN REGULAR HUMAN 100 UNITS/ML *VIAL SQ ONE ×2 (08:45→10:14)
[2021-08-10] MEDS: INSULIN SLIDING SCALE (NOVOLOG) 1 VIAL SQ SCH (16:28)
[2021-08-11] MEDS ORDERED: ACETAMINOPHEN 325 MG TABLET (FP) PO PRN (00:10)
[2021-08-11] MEDS ORDERED: ALBUTEROL SO4 HFA INHALER IH PRN (00:10)
[2021-08-11 00:11] VITALS: BMI 38.8
[2021-08-11] MEDS ORDERED: GABAPENTIN 300 MG CAPSULE PO ONE (00:18)
[2021-08-11] MEDS ORDERED: APIXABAN 5 MG TABLET PO ONE (00:19)
[2021-08-11] MEDS: INSULIN SLIDING SCALE (NOVOLOG) 1 VIAL SQ SCH ×3 (06:05→17:13)
[2021-08-11] MEDS: hydrALAZINE HCL 25 MG TABLET (FP) PO SCH ×3 (06:05→21:36)
[2021-08-11] MEDS: GABAPENTIN 300 MG CAPSULE PO SCH ×3 (06:06→21:50)
[2021-08-11] MEDS: DULoxetine HCL 30 MG CAPSULE.DR PO SCH (09:08)
[2021-08-11] MEDS: APIXABAN 5 MG TABLET PO SCH ×2 (09:08→21:36)
[2021-08-11] MEDS: LORATADINE 10 MG TABLET PO SCH (09:08)
[2021-08-11] MEDS: FUROSEMIDE 40 MG TABLET (FP) PO SCH (09:08)
[2021-08-11] MEDS: ENALAPRIL MALEATE 10 MG TABLET PO SCH (09:08)
[2021-08-11] MEDS: PANTOPRAZOLE 40 MG TABLET PO SCH ×2 (09:09→21:47)
[2021-08-11] MEDS: oxyCODONE HCL 5 MG TABLET PO PRN ×2 (09:15→21:39)
[2021-08-11] MEDS ORDERED: FLU VACC QS2021-22(6MOS UP)/PF 60 MCG/0.5 ML SYRINGE IM ONE (10:00)
[2021-08-11] MEDS: MONTELUKAST NA 10 MG TABLET PO SCH (21:43)
[2021-08-12] MEDS: INSULIN SLIDING SCALE (NOVOLOG) 1 VIAL SQ SCH ×3 (06:40→17:07)
[2021-08-12] MEDS: GABAPENTIN 300 MG CAPSULE PO SCH ×3 (06:40→21:59)
[2021-08-12] MEDS: hydrALAZINE HCL 25 MG TABLET (FP) PO SCH ×3 (06:40→22:00)
[2021-08-12 08:07] LABS: BASO % 0.5 % (0-2.0); EOS % 0.7 % (0-4.5); HEMOGLOBIN 9.7 GM/dL (10.7-15.3); LYMPH % 12.2 % (8-40); MCH 20.7 pg (25.7-33.7); MCHC 30.2 g/dl (32.0-36.0); MEAN CELL VOLUME 68.5 fl (80-96); MEAN PLT VOLUME 10.1 fl (7.5-11.1); NEUT % 79.6 % (42.8-82.8); PLATELET COUNT 300 10^3/uL (134-434); RBC 4.68 M/mm3 (3.60-5.2); WHITE BLOOD COUNT 13.1 K/mm3 (4.0-10.0)
[2021-08-12 08:13] LABS: BLOOD UREA NITROGEN 24.8 mg/dL (7-18); CALCIUM 9.5 mg/dL (8.5-10.1)
[2021-08-12 08:18] LABS: CREATININE 1.1 mg/dL (0.55-1.3)
[2021-08-12] MEDS: DULoxetine HCL 30 MG CAPSULE.DR PO SCH (09:39)
[2021-08-12] MEDS: APIXABAN 5 MG TABLET PO SCH ×2 (09:39→22:00)
[2021-08-12] MEDS: LORATADINE 10 MG TABLET PO SCH (09:39)
[2021-08-12] MEDS: PANTOPRAZOLE 40 MG TABLET PO SCH ×2 (09:40→21:59)
[2021-08-12] MEDS: FUROSEMIDE 40 MG TABLET (FP) PO SCH (09:40)
[2021-08-12] MEDS: ENALAPRIL MALEATE 10 MG TABLET PO SCH (09:40)
[2021-08-12] MEDS: oxyCODONE HCL 5 MG TABLET PO PRN (12:37)
[2021-08-12] MEDS: MONTELUKAST NA 10 MG TABLET PO SCH (21:59)
[2021-08-13] MEDS: hydrALAZINE HCL 25 MG TABLET (FP) PO SCH (06:13)
[2021-08-13] MEDS: GABAPENTIN 300 MG CAPSULE PO SCH (06:13)
[2021-08-13] MEDS: INSULIN SLIDING SCALE (NOVOLOG) 1 VIAL SQ SCH ×2 (06:14→12:15)
[2021-08-13] MEDS ORDERED: metFORMIN HCL 500 MG TABLET (FP) PO SCH (07:00)
[2021-08-13] MEDS: oxyCODONE HCL 5 MG TABLET PO PRN (07:58)
[2021-08-13 10:12] LABS: HEMATOCRIT 34.3 % (32.4-45.2); HEMOGLOBIN 10.5 GM/dL (10.7-15.3); MCHC 30.7 g/dl (32.0-36.0); MEAN CELL VOLUME 68.5 fl (80-96); MEAN PLT VOLUME 9.7 fl (7.5-11.1); PLATELET COUNT 304 10^3/uL (134-434); RBC 5.01 M/mm3 (3.60-5.2); RDW 17.4 % (11.6-15.6); WHITE BLOOD COUNT 11.1 K/mm3 (4.0-10.0)
[2021-08-13 10:19] LABS: BASO % 0.4 % (0-2.0); EOS % 2.4 % (0-4.5); LYMPH % 12.1 % (8-40); MONO % 7.5 % (3.8-10.2); NEUT % 77.6 % (42.8-82.8)
[2021-08-13] MEDS: LORATADINE 10 MG TABLET PO SCH (10:33)
[2021-08-13] MEDS: APIXABAN 5 MG TABLET PO SCH (10:33)
[2021-08-13] MEDS: ENALAPRIL MALEATE 10 MG TABLET PO SCH (10:33)
[2021-08-13] MEDS: DULoxetine HCL 30 MG CAPSULE.DR PO SCH (10:33)
[2021-08-13] MEDS: FUROSEMIDE 40 MG TABLET (FP) PO SCH (10:33)
[2021-08-13] MEDS: PANTOPRAZOLE 40 MG TABLET PO SCH (10:33)
[2021-08-13 11:15] VITALS: BP 150/80; PULSE 88; TEMP 98.6
[2021-08-13 11:43] LABS: ANISOCYTOSIS 2+; MACROCYTOSIS 0; PLATELET ESTIMATE NORMAL; TEAR DROP CELLS 1+
== END 2021-08-13 13:00 | disposition home health service (06) | DRG 291 ==
LOC: JER 05:16 → JERBED 05:37 → J4W 23:43
PROVIDERS: ADMIT Family Medicine; ATTEND Family Medicine
DX: I11.0 Hypertensive heart disease with heart failure (principal); I50.23 Acute on chronic systolic (congestive) heart failure; J81.0 Acute pulmonary edema; J44.1 Chronic obstructive pulmonary disease with (acute) exacerbation; I48.0 Paroxysmal atrial fibrillation; E78.5 Hyperlipidemia, unspecified; K21.9 Gastro-esophageal reflux disease without esophagitis; D64.9 Anemia, unspecified; J45.909 Unspecified asthma, uncomplicated; M54.9 Dorsalgia, unspecified; I44.7 Left bundle-branch block, unspecified; E66.9 Obesity, unspecified; Z68.38 Body mass index [BMI] 38.0-38.9, adult; M79.604 Pain in right leg; D72.829 Elevated white blood cell count, unspecified; R73.03 Prediabetes
CPT/HCPCS: 36415; 71045-TC-FY; 71250-TC; 80048; 80053; 81003; 82550; 82803; 82962; 83036; 83735; 83880; 84484; 85025; 87086; 87804; 87807; 90686; 93005; 93010; 99285-25; C9803; G0008; U0003; U0005

== ENCOUNTER 2021-10-22 08:43 | Inpatient (IN) | payer BC, OTHER ==
[2021-10-22] MEDS ORDERED: ALBUTEROL SO4 2.5/IPRATROPIUM 0.5 INH SOL 3 ML VIAL.NEB. NEB ONE ×2 (09:21→09:33)
[2021-10-22 09:24] VITALS: BMI 36.6
[2021-10-22] MEDS ORDERED: methylPREDNISolone NA SUCC 125 MG/2 ML VIAL IVPB ONE (09:25)
[2021-10-22] MEDS ORDERED: methylPREDNISolone NA SUCC 125 MG/2 ML VIAL ONE (09:33)
[2021-10-22 10:30] LABS: HEMOGLOBIN 10.2 GM/dL (10.7-15.3); MCH 21.3 pg (25.7-33.7); MCHC 30.9 g/dl (32.0-36.0); MEAN CELL VOLUME 68.8 fl (80-96); MEAN PLT VOLUME 8.7 fl (7.5-11.1); PLATELET COUNT 260 10^3/uL (134-434); WHITE BLOOD COUNT 18.4 K/mm3 (4.0-10.0)
[2021-10-22] MEDS ORDERED: CEFTRIAXONE 1 GM in DEXTROSE 5%-WATER - 100 ML IVPB ONE (10:42)
[2021-10-22] MEDS ORDERED: AZITHROMYCIN IVPB 500 MG in DEXTROSE 5%-WATER - 250 ML IVPB ONE (10:42)
[2021-10-22 10:54] LABS: BLOOD UREA NITROGEN 14.2 mg/dL (7-18); CALCIUM 9.6 mg/dL (8.5-10.1)
[2021-10-22 10:55] LABS: ALBUMIN 3.8 g/dl (3.4-5.0)
[2021-10-22 10:59] LABS: BILIRUBIN,TOTAL 0.4 mg/dL (0.2-1); CREATININE 1.1 mg/dL (0.55-1.3); TOT PROT 6.9 g/dl (6.4-8.2)
[2021-10-22 11:02] LABS: N-TERMINAL BNP 2853.6 pg/ml (5-450)
[2021-10-22] MEDS ORDERED: CEFTRIAXONE 1 GM/50 ML BAG ONE (11:02)
[2021-10-22 11:16] LABS: ANISOCYTOSIS 1+; MACROCYTOSIS 0; TARGET CELLS 1+
[2021-10-22] MEDS ORDERED: AZITHROMYCIN IVPB 500 MG/250 ML BAG IVPB ONE (12:00)
[2021-10-22 12:04] LABS: VENOUS BASE EXCESS -0.6 mmol/L (-2-2); VENOUS O2 SATURATION 97.1 % (70-80); VENOUS PCO2 41.7 mmHg (38-52); VENOUS PH 7.385 (7.310-7.410)
[2021-10-22 12:26] LABS: LACTIC ACID 5.1 mmol/L (0.4-2.0)
[2021-10-22] MEDS ORDERED: SODIUM CHLORIDE 0.9% 500 ML INFUS.BAG IV ONE ×2 (12:47→18:17)
[2021-10-22 13:37] LABS: EPI CELLS >36 /uL (0-25.1); HYALINE CASTS 1 /uL (0-3.1); PH,URINE 5.5 (5.0-8.0); URINE APPEARANCE CLEAR; URINE BACTERIA 263 /uL (0-1359); URINE BILIRUBIN NEGATIVE (NEGATIVE); URINE COLOR YELLOW; URINE GLUCOSE (UA) TRACE (NEGATIVE); URINE KETONE NEGATIVE (NEGATIVE); URINE LEUK ESTERASE NEGATIVE (NEGATIVE); URINE NITRITE NEGATIVE (NEGATIVE); URINE PROTEIN 3+ (NEGATIVE); URINE RBC 8 /uL (0-23.9); URINE UROBILINOGEN 0.2 mg/dL (0.2-1.0); URINE WBC 18 /uL (0-25.8)
[2021-10-22] MEDS ORDERED: ACETAMINOPHEN 325 MG TABLET (FP) PO PRN (13:41)
[2021-10-22] MEDS ORDERED: ALBUTEROL SO4 0.083% IH SOL 2.5 MG/3 ML VIAL.NEB. NEB PRN (13:41)
[2021-10-22 14:04] LABS: YEAST PRESENT (NEGATIVE)
[2021-10-22] MEDS ORDERED: GABAPENTIN 100 MG CAPSULE ONE (14:36)
[2021-10-22] MEDS: GABAPENTIN 300 MG CAPSULE PO SCH ×2 (14:47→21:20)
[2021-10-22] MEDS ORDERED: metFORMIN HCL 500 MG TABLET (FP) ONE (16:18)
[2021-10-22] MEDS ORDERED: metFORMIN HCL 500 MG TABLET (FP) PO SCH (16:30)
[2021-10-22] MEDS: INSULIN SLIDING SCALE (NOVOLOG) 1 VIAL SQ SCH ×2 (16:51→21:58)
[2021-10-22 18:11] LABS: LACTIC ACID 5.5 mmol/L (0.4-2.0)
[2021-10-22] MEDS ORDERED: amLODIPine BESYLATE 2.5 MG TABLET (FP) ONE (18:55)
[2021-10-22] MEDS: amLODIPine BESYLATE 2.5 MG TABLET (FP) PO SCH (19:05)
[2021-10-22] MEDS: oxyCODONE HCL 5 MG TABLET PO PRN (21:18)
[2021-10-22] MEDS: APIXABAN 5 MG TABLET PO SCH (21:20)
[2021-10-22] MEDS: DOCUSATE SODIUM 100 MG CAPSULE (FP) PO SCH ×2 (21:20→21:24)
[2021-10-22] MEDS: hydrALAZINE HCL 10 MG TABLET PO SCH (21:20)
[2021-10-22] MEDS: MONTELUKAST NA 10 MG TABLET PO SCH (21:22)
[2021-10-23] MEDS: GABAPENTIN 300 MG CAPSULE PO SCH ×3 (05:58→21:18)
[2021-10-23] MEDS: INSULIN SLIDING SCALE (NOVOLOG) 1 VIAL SQ SCH ×4 (06:00→22:19)
[2021-10-23 08:13] LABS: HEMOGLOBIN 9.6 GM/dL (10.7-15.3); MCH 21.1 pg (25.7-33.7); MCHC 30.9 g/dl (32.0-36.0); MEAN CELL VOLUME 68.3 fl (80-96); MEAN PLT VOLUME 9.4 fl (7.5-11.1); PLATELET COUNT 254 10^3/uL (134-434); RBC 4.54 M/mm3 (3.60-5.2); RDW 17.2 % (11.6-15.6); WHITE BLOOD COUNT 13.9 K/mm3 (4.0-10.0)
[2021-10-23 08:24] LABS: CALCIUM 9.5 mg/dL (8.5-10.1)
[2021-10-23 08:25] LABS: ALBUMIN 3.4 g/dl (3.4-5.0); BLOOD UREA NITROGEN 17.9 mg/dL (7-18)
[2021-10-23 08:28] LABS: CREATININE 0.9 mg/dL (0.55-1.3)
[2021-10-23 08:29] LABS: BILIRUBIN,TOTAL 0.5 mg/dL (0.2-1); TOT PROT 6.1 g/dl (6.4-8.2)
[2021-10-23] MEDS: ENALAPRIL MALEATE 10 MG TABLET PO SCH (09:11)
[2021-10-23] MEDS: amLODIPine BESYLATE 2.5 MG TABLET (FP) PO SCH (09:11)
[2021-10-23] MEDS: DULoxetine HCL 30 MG CAPSULE.DR PO SCH (09:11)
[2021-10-23] MEDS: PANTOPRAZOLE 40 MG TABLET PO SCH (09:11)
[2021-10-23] MEDS: hydrALAZINE HCL 10 MG TABLET PO SCH ×2 (09:12→21:18)
[2021-10-23] MEDS: FUROSEMIDE 40 MG/4 ML INJECTABLE VIAL IVPUSH SCH (09:12)
[2021-10-23] MEDS: APIXABAN 5 MG TABLET PO SCH ×2 (09:12→21:18)
[2021-10-23] MEDS ORDERED: cefTRIAXone SODIUM 1 GM VIAL ONE (13:01)
[2021-10-23] MEDS ORDERED: DEXTROSE 5%-WATER - 50 ML IVPB ONE (13:02)
[2021-10-23] MEDS: CEFTRIAXONE 1 GM in DEXTROSE 5%-WATER - 50 ML IVPB SCH (13:03)
[2021-10-23] MEDS: oxyCODONE HCL 5 MG TABLET PO PRN ×2 (13:05→22:21)
[2021-10-23] MEDS: DOCUSATE SODIUM 100 MG CAPSULE (FP) PO SCH (21:18)
[2021-10-23] MEDS: MONTELUKAST NA 10 MG TABLET PO SCH (21:18)
[2021-10-24] MEDS: GABAPENTIN 300 MG CAPSULE PO SCH ×3 (06:08→21:54)
[2021-10-24] MEDS: INSULIN SLIDING SCALE (NOVOLOG) 1 VIAL SQ SCH ×4 (06:37→21:54)
[2021-10-24] MEDS ORDERED: cefTRIAXone SODIUM 1 GM VIAL ONE (08:36)
[2021-10-24] MEDS ORDERED: DEXTROSE 5%-WATER - 50 ML IVPB ONE (08:37)
[2021-10-24] MEDS: ENALAPRIL MALEATE 10 MG TABLET PO SCH ×2 (09:57→16:14)
[2021-10-24] MEDS: DULoxetine HCL 30 MG CAPSULE.DR PO SCH (09:57)
[2021-10-24] MEDS: PANTOPRAZOLE 40 MG TABLET PO SCH (09:57)
[2021-10-24] MEDS: amLODIPine BESYLATE 2.5 MG TABLET (FP) PO SCH (09:57)
[2021-10-24] MEDS: hydrALAZINE HCL 10 MG TABLET PO SCH ×2 (09:57→21:54)
[2021-10-24] MEDS: FUROSEMIDE 40 MG/4 ML INJECTABLE VIAL IVPUSH SCH (09:57)
[2021-10-24] MEDS: APIXABAN 5 MG TABLET PO SCH ×2 (09:57→21:54)
[2021-10-24] MEDS: CEFTRIAXONE 1 GM in DEXTROSE 5%-WATER - 50 ML IVPB SCH (09:58)
[2021-10-24] MEDS: MONTELUKAST NA 10 MG TABLET PO SCH (21:54)
[2021-10-24] MEDS: oxyCODONE HCL 5 MG TABLET PO PRN (21:54)
[2021-10-24] MEDS: DOCUSATE SODIUM 100 MG CAPSULE (FP) PO SCH (21:54)
[2021-10-25] MEDS: GABAPENTIN 300 MG CAPSULE PO SCH ×2 (06:34→13:19)
[2021-10-25] MEDS: INSULIN SLIDING SCALE (NOVOLOG) 1 VIAL SQ SCH ×3 (06:35→16:26)
[2021-10-25] MEDS ORDERED: metFORMIN HCL 500 MG TABLET (FP) PO SCH (07:00)
[2021-10-25 07:14] LABS: HEMATOCRIT 32.1 % (32.4-45.2); HEMOGLOBIN 10.5 GM/dL (10.7-15.3); MCH 22.2 pg (25.7-33.7); MCHC 32.6 g/dl (32.0-36.0); MEAN CELL VOLUME 68.1 fl (80-96); PLATELET COUNT 261 10^3/uL (134-434); RBC 4.72 M/mm3 (3.60-5.2); RDW 17.1 % (11.6-15.6); WHITE BLOOD COUNT 11.1 K/mm3 (4.0-10.0)
[2021-10-25 07:27] LABS: BLOOD UREA NITROGEN 19.7 mg/dL (7-18); MAGNESIUM 2.2 mg/dL (1.8-2.4)
[2021-10-25 07:28] LABS: CALCIUM 9.2 mg/dL (8.5-10.1)
[2021-10-25] MEDS: oxyCODONE HCL 5 MG TABLET PO PRN (08:39)
[2021-10-25] MEDS ORDERED: cefTRIAXone SODIUM 1 GM VIAL ONE (08:49)
[2021-10-25] MEDS ORDERED: DEXTROSE 5%-WATER - 50 ML IVPB ONE (08:49)
[2021-10-25] MEDS: CEFTRIAXONE 1 GM in DEXTROSE 5%-WATER - 50 ML IVPB SCH (09:17)
[2021-10-25] MEDS: hydrALAZINE HCL 10 MG TABLET PO SCH (09:17)
[2021-10-25] MEDS: PANTOPRAZOLE 40 MG TABLET PO SCH (09:17)
[2021-10-25] MEDS: ENALAPRIL MALEATE 10 MG TABLET PO SCH (09:17)
[2021-10-25] MEDS: DULoxetine HCL 30 MG CAPSULE.DR PO SCH (09:18)
[2021-10-25] MEDS: APIXABAN 5 MG TABLET PO SCH (09:18)
[2021-10-25] MEDS: amLODIPine BESYLATE 2.5 MG TABLET (FP) PO SCH (09:18)
[2021-10-25] MEDS ORDERED: FUROSEMIDE 40 MG TABLET (FP) PO SCH (10:00)
[2021-10-25 15:13] VITALS: BP 134/57; PULSE 65; TEMP 98.4
== END 2021-10-25 17:39 | disposition home or self-care (01) | DRG 291 ==
LOC: JER 08:43 → JERBED 10:46 → J4W 20:36
PROVIDERS: ADMIT Family Medicine; ATTEND Family Medicine
DX: I11.0 Hypertensive heart disease with heart failure (principal); I50.23 Acute on chronic systolic (congestive) heart failure; E87.2 Acidosis; I48.0 Paroxysmal atrial fibrillation; E11.9 Type 2 diabetes mellitus without complications; D64.9 Anemia, unspecified; K21.9 Gastro-esophageal reflux disease without esophagitis; J45.909 Unspecified asthma, uncomplicated; I50.9 Heart failure, unspecified; J43.9 Emphysema, unspecified; J06.9 Acute upper respiratory infection, unspecified; Z88.0 Allergy status to penicillin
CPT/HCPCS: 36415; 71045-TC-FY; 71250-TC; 80048; 80053; 80061; 81003; 82803; 82962; 83036; 83605; 83735; 83880; 84443; 84484; 85025; 85027; 87040; 87086; 93005; 93010; 99285-25; C9803; U0003; U0005

== ENCOUNTER 2021-12-13 15:26 | Emergency (ER) | payer OTHER ==
[2021-12-13 15:33] VITALS: TEMP 98; BMI 38.2
[2021-12-13 17:44] VITALS: BP 165/79; PULSE 75
== END 2021-12-13 19:08 | disposition home or self-care (01) ==
LOC: JER 15:26
DX: R60.0 Localized edema (principal); I10 Essential (primary) hypertension
CPT/HCPCS: 71046-TC-FY; 93971-TC; 99284-25

== ENCOUNTER 2022-03-08 04:13 | Day surgery (SDC) | payer OTHER ==
[2022-03-06 11:27] VITALS: BMI 37.8
[2022-03-08] MEDS ORDERED: LIDOCAINE HCL/PF 1% SDV 5ML VIAL ONE (07:33)
[2022-03-08] MEDS ORDERED: BUPIVACAINE HCL/PF 0.75% 10 ML VIAL ONE (07:33)
[2022-03-08 12:25] VITALS: BP 174/84; PULSE 77; RESP 18; TEMP 98.9
== END 2022-03-08 11:35 | disposition home or self-care (01) ==
LOC: JASU-SURG 04:13
PROVIDERS: ATTEND Pain Medicine Pain Medicine
DX: Z53.8 Procedure and treatment not carried out for other reasons (principal)